=== PATIENT | female | born 1935 | race Caucasian/White ===

== ENCOUNTER → 2016-10-04 | Outpatient (CLI) | payer OTHER ==
[2016-10-04 13:01] LABS: BASOPHILS # (AUTO) 0.09 10*3/UL; EOSINOPHILS # (AUTO) 0.31 10*3/UL; EOSINOPHILS % (AUTO) 3.3 % (0-8); HEMATOCRIT 37.4 % (37.0-47.0); HEMOGLOBIN 11.8 g/dL (12.0-16.0); LYMPHOCYTES # (AUTO) 1.82 10*3/uL; MEAN CORPUSCULAR HEMOGLOBIN 29.4 PG (27-31); MEAN CORPUSCULAR HGB CONC 31.6 g/dL (33-37); MEAN PLATELET VOLUME 8.4 FL (7.4-12.2); MONOCYTES # (AUTO) 0.93 10*3/UL (0.3-0.8); MONOCYTES % (AUTO) 9.9 % (5-15); NEUTROPHILS # (AUTO) 6.22 10*3/UL; NEUTROPHILS % (AUTO) 66.1 % (50-80); RED BLOOD COUNT 4.02 10^6/uL (4.20-5.40)
[2016-10-04 13:19] LABS: CALCIUM 10.7 mg/dL (8.7-10.7); SERUM ALBUMIN 4.4 g/dL (3.5-4.8)
[2016-10-04 13:22] LABS: PLATELET MORPHOLOGY COMMENT NORMAL MORPHOLOGY (NORM); RBC MORPHOLOGY COMMENT NORMAL MORPHOLOGY (NORM); WBC MORPHOLOGY COMMENT NORMAL MORPHOLOGY (NORM)
== END ==
LOC: LAB 12:38
PROVIDERS: ATTEND Physician Assistant
DX: K92.1 Melena (principal); R19.4 Change in bowel habit; R12 Heartburn
CPT/HCPCS: 36415; 80053; 83690; 85025; 85610; 85730; 86140; 99203

== ENCOUNTER → 2016-10-10 | Outpatient (CLI) | payer OTHER | LOC: MMPC 11:11 | PROVIDERS: ATTEND Surgery | DX: K21.9 Gastro-esophageal reflux disease without esophagitis (principal); K62.5 Hemorrhage of anus and rectum; R19.4 Change in bowel habit; R19.7 Diarrhea, unspecified | CPT/HCPCS: 99203; G0463 ==

== ENCOUNTER 2016-10-15 08:13 | Day surgery (SDC) | payer OTHER ==
[~2016-10-15 08:13] MED LIST: LIDOCAINE 2% VISCOUS(20 MG/1 ML) - 15 ML UD CUP PO ONE; LIDOCAINE HCL/PF 2% (20 MG/ML) - 5 ML SYRINGE ONE; LIDOCAINE W/ SODIUM BICARB 0.5 ML SYR ONE; Lactated Ringers 1,000 ML PRIMARY IV ONE; MIDAZOLAM 5 MG/1 ML ONE; fentaNYL Inj 100 MCG/2 ML VIAL ONE
[2016-10-15 08:58] VITALS: RESP 14
[2016-10-15] MEDS ORDERED: Lactated Ringers 1,000 ML PRIMARY IV ONE (09:07)
--- NOTE | 2016-10-15 10:34 | GEN.OPNOTE ---
EGD / Colonoscopy Report Surgery Date: 10/15/16 Preoperative Diagnosis: Chronic GERD. Bright red blood per rectum. Change in bowel habits. Diarrhea. Postoperative Diagnosis: Same. Diverticulosis. Colon polyps 2. Procedure: #1 esophagogastroduodenoscopy with biopsy. #2 complete colonoscopy with multiple random biopsies and hot snare polypectomy 2. Surgeon: Arnoldo Mendes MD Anesthesia Provider: Kennedy Wren CRNA Anesthesia Type: MAC Indications: See preoperative diagnosis. EGD Findings: Esophagus: [Normal] GE Junction : [Mild irregularity] Fundus : [Normal] Body : [Normal] Prepyloric : [Mild erythema] Small Intestine : [Normal] A lubricated flexible upper endoscope was inserted and passed through the esophagus and stomach into the duodenum. The duodenum and duodenal bulb were unremarkable. The pyloric channel was patent. There is mild inflammation in the antrum. Multiple biopsies were taken. Hemostasis was assured. The remainder of the gastric mucosa was unremarkable. Air was aspirated. The scope was withdrawn into the distal esophagus. Biopsies were taken at and above the Z line. Hemostasis was assured. The scope was withdrawn through the remainder of a normal-appearing esophagus and brought through the hypopharynx under suction completing that portion of the procedure. Colonoscopy Findings: Prep : [Very good] Cecum : [Normal] Ascending : [Small polyp. Removed with a hot snare. Random biopsies taken.] Transverse : [Normal. Random biopsies taken.] Sigmoid : [Small polyp. Hot snare polypectomy performed. Diverticulosis. Random biopsies taken. Sigmoid colon was tortuous.] Rectum : [Normal. Random biopsies taken] Digital Rectal Exam : [No significant perianal pathology.] Anoscopy:[No significant hemorrhoidal disease.] A lubricated flexible colonoscope was inserted and passed to the blind end of the cecum. The sigmoid colon was very tortuous and it took a while to advance the scope to the cecum. This appendiceal orifice and ileocecal valve were clearly seen. Air was aspirated as the scope was withdrawn. There is a small polyp in the right colon and a small polyp in the sigmoid colon. Both were removed with a hot snare. Random biopsies were taken from the right colon, transverse colon, sigmoid colon, and rectum. There was diverticulosis most predominant in the sigmoid but diverticuli were seen throughout the colon. Otherwise the entire colonoscopy was normal without other polyps, tumor, neoplastic masses, infectious or inflammatory processes identified. There was only minimal hemorrhoidal tissue and nothing amenable to local treatment. The scope was withdrawn completing the procedure. Patient tolerated the entire procedure well without complication. She was taken to outpatient surgery in stable condition. Follow-up will be with my office on an as-needed basis. We will call the biopsy results when available and plan therapy and follow-up accordingly.
[2016-10-15 11:43] VITALS: TEMP 97.5
== END 2016-10-15 11:25 | disposition home or self-care (01) ==
LOC: SDSC 08:13
PROVIDERS: ATTEND Surgery
DX: K21.9 Gastro-esophageal reflux disease without esophagitis (principal); K62.5 Hemorrhage of anus and rectum; R19.4 Change in bowel habit; R19.7 Diarrhea, unspecified; K57.90 Diverticulosis of intestine, part unspecified, without perforation or abscess without bleeding; K63.5 Polyp of colon
CPT/HCPCS: 43239; 45385; J2250; J2704; J3010; J7120

== ENCOUNTER 2018-04-20 13:00 | Inpatient (IN) ==
[2018-04-20] MEDS ORDERED: Sodium Chloride 0.9% 1,000 ML PRIMARY IV ONE (13:41)
--- NOTE | 2018-04-20 14:26 | EKG ---
[address] [address] Measurements Intervals [place] Rate: 89 P: 192 MN: 158 QRS: 198 QRSD: 87 T: 141 QT: 351 QTc: 397 Interpretive Statements ECTOPIC ATRIAL RHYTHM POSSIBLE RIGHT VENTRICULAR HYPERTROPHY [SOME/ALL OF: PROMINENT R IN V1, LATE TRANSITION, RAD, CHOLO, SSS] No previous ECG available for comparison Electronically Signed On 04-21-18 15:26:14 MST by Roque Reyes MD [email or web address]
[2018-04-20 14:56] LABS: BASOPHILS # (AUTO) 0.04 10*3/UL; BASOPHILS % (AUTO) 0.4 % (0-1); EOSINOPHILS # (AUTO) 0.16 10*3/UL; EOSINOPHILS % (AUTO) 1.7 % (0-8); Hematocrit [HCT] 34.1 % (37.0-47.0); Hemoglobin [HGB] 10.4 g/dL (12.0-16.0); LYMPHOCYTES # (AUTO) 1.15 10*3/uL; MEAN CORPUSCULAR HEMOGLOBIN 28.2 PG (27-31); MEAN CORPUSCULAR HGB CONC 30.5 g/dL (33-37); MEAN CORPUSCULAR VOLUME 92.4 FL (81-99); MEAN PLATELET VOLUME 8.3 FL (7.4-12.2); MONOCYTES # (AUTO) 0.89 10*3/UL (0.3-0.8); MONOCYTES % (AUTO) 9.6 % (5-15); NEUTROPHILS # (AUTO) 6.98 10*3/UL; NEUTROPHILS % (AUTO) 75.6 % (50-80); RED BLOOD COUNT 3.69 10^6/uL (4.20-5.40)
[2018-04-20 14:57] LABS: PLATELET MORPHOLOGY COMMENT NORMAL MORPHOLOGY (NORM); RBC MORPHOLOGY COMMENT NORMAL MORPHOLOGY (NORM); WBC MORPHOLOGY COMMENT NORMAL MORPHOLOGY (NORM)
[2018-04-20 15:08] LABS: BILIRUBIN,URINE SMALL (NEG); CLARITY,URINE CLEAR (CLEAR); COLOR,URINE YELLOW (Y); GLUCOSE, URINE (UA) NEGATIVE (NEG); OCCULT BLOOD,URINE Trace-lysed (NEG); PH,URINE 5.5 (5.0-8.5); PROTEIN,URINE TRACE mg/dl (NEG); UROBILINOGEN,URINE 0.2 EU/dL (0.2)
[2018-04-20 15:13] LABS: BLOOD UREA NITROGEN 25 mg/dL (7-22); BUN/CREATININE RATIO 31.25 (6-20); SERUM ALBUMIN 4.1 g/dL (3.5-4.8)
[2018-04-20 15:15] LABS: SQUAMOUS EPITHELIAL CELL,UR FEW; URINE SAMPLE TYPE CATH SPECIMEN; WBC,URINE RARE
[2018-04-20 15:16] LABS: BACTERIA,URINE MODERATE; RENAL EPITHELIAL CELLS,URINE MODERATE; URINE CASTS FEW
--- NOTE | 2018-04-20 16:07 | PDOC ---
HPI - History of Present Illness History of Present Illness: Is a very nice 82-year-old female brought in by her daughter she's been having a week of mucousy diarrhea 2-3 times a day with generalized weakness dehydration and confusion. Denies chest pain nausea vomiting Past Medical History In the Past 12 Months, Have Used or Abuse Any of the Following Substance: None Medication / Allergies Home Medications: Home Medications Medication Instructions Recorded Confirmed Type metformin 1,000 mg tablet 1,000 mg PO BID #180 tab 10/28/17 04/20/18 Rx Pen Needle, Diabetic [Pen Needle] 0 ea .ROUTE .MEDSUPPLY 12/16/17 04/20/18 History donepezil 10 mg tablet 10 mg PO QDAY #90 tab 12/22/17 04/20/18 Rx enalapril maleate 10 mg tablet 10 mg PO QDAY tab 12/22/17 04/20/18 History fluoxetine 40 mg capsule 40 mg PO QDAY cap 12/22/17 04/20/18 History hydrochlorothiazide 25 mg tablet 25 mg PO QDAY tab 12/22/17 04/20/18 History lancets 32 gauge 1 gauge MISCELLANEOUS QDAY #50 ea 12/24/17 04/20/18 Rx aspirin 81 mg tablet,delayed 81 mg PO QDAY #112 tab 03/08/18 04/20/18 Rx release insulin glargine (U-100) 100 See Rx Instructions .ROUTE 03/12/18 04/20/18 Rx unit/mL (3 mL) subcutaneous pen .COMPLEX #3 milliliter Blood Sugar Diagnostic [Contour 0 unit .ROUTE .MEDSUPPLY 04/20/18 04/20/18 History Test Strip] wheelchair 0 unit .ROUTE .MEDSUPPLY 04/20/18 04/20/18 History Allergies/Adverse Reactions: Allergies Allergy/AdvReac Type Severity Reaction Status Date / Time Sulfa (Sulfonamide Allergy NOT Verified 03/23/18 15:02 Antibiotics) APPLICABLE Review of Systems - Review of Systems All Systems: Reviewed & No Additional Complaints Except as Stated - Respiratory Respiratory: DENIES: Negative System Review, Cough, Sputum, Dyspnea At Rest, Dyspnea with Exertion, Pleuritic Pain, Hemoptysis, Wheezing, Other, See HPI - Cardiovascular Cardiovascular: DENIES: Negative System Review, Chest Pain, Edema, Syncope, Palpitations, Orthopnea, Paroxysmal Nocturnal Dyspnea, Other, See HPI - Gastrointestinal Gastrointestinal / Abdominal: REPORTS: Diarrhea Exam - Vitals Vital Signs: Vital Signs Height 5 ft 2 in Weight 110 lb - General General Appearance: No Acute Distress, Cooperative - Head Head Exam: Normal Inspection, Normocephalic, Atraumatic - Neck Neck Exam: Normal Inspection, Full ROM, No Tenderness, No Lymphadenopathy, No Thyromegaly, JVP is not Raised - Respiratory Respiratory Exam: POSITIVE: Clear to Auscultation - Bilaterally, Breathing Non Labored, Normal To Percussion, Normal to Percussion and Palpation - Cardiovascular Cardiovascular Exam: POSITIVE: RRR, No Murmur, No Clicks, No Gallops, No Rubs, PMI Non-Displaced - GI/Abdominal GI/Abdominal Exam: POSITIVE: Normal Bowel Sounds, Non Tender, Non Distended, Soft, No Masses, No Hepatomegaly, No Splenomegaly, No Organomegaly - Extremities Extremities Exam: POSITIVE: No Clubbing Present, No Edema Present Results - Labs CBC and BMP: 04/20/18 13:41 04/20/18 14:48 Assessment and Plan - Patient Problems (1) Urinary tract infection Current Visit: No Status: Resolved Comment: Treatment with ceftriaxone patient is confused Code(s): N39.0 - Urinary tract infection, site not specified Qualifiers: (2) Diarrhea in adult patient Current Visit: No Status: Resolved Comment: By a fire alarm parasites and stool cultures were sent CT scan abdomen and pelvis pending this could all be from metformin as well I will hold metformin Code(s): R19.7 - Diarrhea, unspecified (3) Weakness Current Visit: Yes Status: Acute Comment: Daughter unable to take care of patient at home hard to move around came close to falling multiple times consult PTOT Code(s): R53.1 - Weakness (4) Dementia Current Visit: No Status: Chronic Comment: Stable Code(s): F03.90 - Unspecified dementia without behavioral disturbance Qualifiers: (5) Depression Current Visit: No Status: Chronic Qualifiers: (6) Type 2 diabetes mellitus Current Visit: No Status: Chronic Qualifiers:
--- NOTE | 2018-04-20 16:53 | PDOC ---
General Adult HPI - General Chief Complaint: Nausea / Vomiting / Diarrhea Stated Complaint: MUCOUSY STOOLS, DISORIENTED, WEAKNESS Date Seen by Provider: 04/20/18 Time Seen by Provider: 13:05 Source: POSITIVE: Patient, Other (Daughter) Exam Limitations: POSITIVE: No limitations Nurse's Notes Reviewed & Considered: Yes - History of Present Illness Initial Comment: The patient is an 82-year-old female who is brought to the emergency department with complaints of loose mucousy stool, generalized weakness and some increased confusion. The patient's daughter reports that for the past several weeks she has noticed increased mucus in the stool. Over the past several days this is become more prominent. The patient has persistent sensation that she needs have a bowel movement however usually only passes small amounts of stool with copious amounts of mucus. They have not noticed any blood in the stool. She states that she does have some pain in her abdomen intermittently and has some slight pain in the epigastric region currently. She has not had any associated nausea or vomiting. They have not noticed any fever. Her daughter reports however over the past week or 2 she has been progressively getting weaker to the point where her daughter is concerned about taking care of her at home. She has not had any recent significant falls. Her daughter thinks that she was treated fairly recently for a urinary tract infection. She does not have any known history of inflammatory bowel disease. Have you received a tetanus shot in the past 10 years?: Yes - Patient Home Medications Home Medications: Home Medications metformin 1,000 mg tablet 1,000 mg PO BID #180 tab 10/28/17 Pen Needle, Diabetic [Pen Needle] 0 ea .ROUTE .MEDSUPPLY 12/16/17 donepezil 10 mg tablet 10 mg PO QDAY #90 tab 12/22/17 enalapril maleate 10 mg tablet 10 mg PO QDAY tab 12/22/17 fluoxetine 40 mg capsule 40 mg PO QDAY cap 12/22/17 hydrochlorothiazide 25 mg tablet 25 mg PO QDAY tab 12/22/17 lancets 32 gauge 1 gauge MISCELLANEOUS QDAY #50 ea 12/24/17 aspirin 81 mg tablet,delayed release 81 mg PO QDAY #112 tab 03/08/18 insulin glargine (U-100) 100 unit/mL (3 mL) subcutaneous pen See Rx Instructions .ROUTE .COMPLEX #3 milliliter 03/12/18 Blood Sugar Diagnostic [Contour Test Strip] 0 unit .ROUTE .MEDSUPPLY 04/20/18 wheelchair 0 unit .ROUTE .MEDSUPPLY 04/20/18 - Patient Allergies Allergies/Adverse Reactions: Allergies Allergy/AdvReac Type Severity Reaction Status Date / Time Sulfa (Sulfonamide Allergy NOT Verified 03/23/18 15:02 Antibiotics) APPLICABLE Past Medical History - heen HEENT History: Denies History Cardiovascular History: Hypertension Respiratory History: Denies History Gastrointestinal History: GERD Genitourinary History: Denies History Endocrine History: Type 2 Diabetes (oral), Type 2 Diabetes (insulin) Musculoskeletal History: Osteoporosis Prosthesis or Implant: No Neurological History: Denies History Blood Disorders: Denies History Psychiatric History: Depression History of Sexually Transmitted Diseases: No Female Reproductive History: Denies History Cancer History: Denies History In Past Year Been Physically Harmed or Verbally Threatened: No (PER PATIENT AND DAUGHTER) History of MDRO: No History of Other Communicable Diseases: No Tobacco Use: Never Smoker Alcohol Use: Rarely In the Past 12 Months, Have Used or Abuse Any Substance: None Previous Surgical History: Yes Type / Date of Surgery: SHASHANK/ D&C Anesthesia Reactions: No Malignant Hyperthermia: No Family History of Malignant Hyperthermia: No Significant Family History: No pertinent family hx Past Medical History Reviewed: Reviewed - No Changes ROS - Limitations ROS Limitations: No Limitations Constitution: REPORTS: Chills, Weakness. DENIES: Fever Cardiovascular: DENIES: Edema Respiratory: DENIES: Shortness Of Breath Neurological: REPORTS: Confusion, Difficulty Walking. DENIES: Headache, Numbn ess, Weakness Gastrointestinal: REPORTS: Abdominal Pain, Diarrhea. DENIES: Nausea, Vomitting, Black Stools, Bloody Stools Endocrine: REPORTS: Fatigue Musculoskeletal: DENIES: Lower Extremity Swelling Genitourinary: REPORTS: Denies Symptoms Eyes: REPORTS: Denies Symptoms ENT: REPORTS: Denies Symptoms Skin: DENIES: Rash General Adult Exam - General Appearance General Appearance: POSITIVE: Alert, Cooperative, No Acute Distress - HEENT HEENT: POSITIVE: Head Inspection Nml, Eyes Inspection Nml, Ears Inspection Nml, Nose Inspection Nml, Pharynx Inspect. Nml, Dry Mucous Membranes - Neck Neck: POSITIVE: Normal Inspection. NEGATIVE: Lymphadenopathy - Respiratory Respiratory: POSITIVE: No Respiratory Distress, Breath Sounds Normal - Cardiovascular Cardiovascular: POSITIVE: Regular Rate & Rhythm, No Murmur - Abdomen Abdomen: Soft: (All Quadrants), No [place] Mass: (All Quadrants), No Distention: (All Quadrants) Additional Abdominal Details: She does have some tenderness to her upper abdomen with deeper palpation, no guarding or rebound tenderness, no palpable mass - Back Back: POSITIVE: Normal Inspection - Skin Skin: POSITIVE: Normal Color, No Rash - Extremities Extremity: Normal ROM: (All Extremities), Normal Inspection: (All Extremities) - Neurological / Psychological Neurological: POSITIVE: Other (No focal neurologic deficits) General Adult Progress - Results Reviewed by me Lab Results Reviewed by Me: Yes Lab Results:: Laboratory Results 04/20/18 04/20/18 04/20/18 13:41 14:48 14:48 WBC 9.25 RBC 3.69 L Hgb 10.4 L Hct 34.1 L MCV 92.4 MCH 28.2 MCHC 30.5 L RDW Std Deviation 49.4 RDW Coeff of Jabier 15.2 H Plt Count 506 H MPV 8.3 Immature Gran % (Auto) 0.3 Neut % (Auto) 75.6 Lymph % (Auto) 12.4 R[place]els % (Auto) 9.6 Eos % (Auto) 1.7 Baso % (Auto) 0.4 Immature Gran # (Auto) 0.03 Neut # (Auto) 6.98 Lymph # (Auto) 1.15 [place] # (Auto) 0.89 H Eos # (Auto) 0.16 Baso # (Auto) 0.04 WBC Morphology Comment Normal morphology Plt Morphology Comment Normal morphology RBC Morph Comment Normal morphology Sodium 137 Potassium 4.2 Chloride 102 Carbon Dioxide 25 Anion Gap 10 BUN 25 H Creatinine 0.8 BUN/Creatinine Ratio 31.25 H Glucose 127 H Calculated Osmolality 289.0 Calcium 9.8 Magnesium 1.9 Total Bilirubin 0.4 AST 19 ALT 11 Alkaline Phosphatase 79 Troponin I < 0.012 C-Reactive Protein 7.1 H Total Protein 7.3 Albumin 4.1 Globulin 3.1 Albumin/Globulin Ratio 1.30 TSH Ur Collection Type Urine Color Urine Clarity Urine pH Ur Specific [place] Urine Protein Urine Glucose (UA) Urine Ketones Urine Occult Blood Urine Nitrate Urine Bilirubin Urine Urobilinogen Ur Leukocyte Esterase Urine RBC Urine WBC Ur Squamous Epith Cells Ur Renal Epithelial Cell Urine Crystals Urine Bacteria Urine Casts Urine Mucus Urine Trichomonas Urine Yeast Ur Culture Indicated? 04/20/18 04/20/18 14:48 15:01 WBC RBC Hgb Hct MCV MCH MCHC RDW Std Deviation RDW Coeff of Jabier Plt Count MPV Immature Gran % (Auto) Neut % (Auto) Lymph % (Auto) [place] % (Auto) Eos % (Auto) Baso % (Auto) Immature Gran # (Auto) Neut # (Auto) Lymph # (Auto) [place] # (Auto) Eos # (Auto) Baso # (Auto) WBC Morphology Comment Plt Morphology Comment RBC Morph Comment Sodium Potassium Chloride Carbon Dioxide Anion Gap BUN Creatinine BUN/Creatinine Ratio Glucose Calculated Osmolality Calcium Magnesium Total Bilirubin AST ALT Alkaline Phosphatase Troponin I C-Reactive Protein Total Protein Albumin Globulin Albumin/Globulin Ratio TSH 1.34 Ur Collection Type Cath specimen Urine Color Yellow Urine Clarity Clear Urine pH 5.5 Ur Specific [place] 1.025 Urine Protein Trace Urine Glucose (UA) Negative Urine Ketones 15 Urine Occult Blood Trace-lysed H Urine Nitrate Negative Urine Bilirubin Small Urine Urobilinogen 0.2 Ur Leukocyte Esterase Negative Urine RBC 1-3 Urine WBC Rare Ur Squamous Epith Cells Few Ur Renal Epithelial Cell Moderate Urine Crystals None Urine Bacteria Moderate H Urine Casts Few Urine Mucus Moderate Urine Trichomonas None Urine Yeast None Ur Culture Indicated? Culture not set CBC and BMP: 04/20/18 13:41 04/20/18 14:48 EKG Interpreted/Reviewed By Me:: Yes EKG Interpretation:: POSITIVE: Normal Sinus Rhythm, Normal Rate, Normal QRS, Normal ST/T - Patient's Progress MDM / ED Course: EKG done shortly after arrival shows normal sinus rhythm with no acute ST segment changes. An IV was established and she received 1 L bolus of normal saline. Her blood work reveals an elevated BUN. Her white count is normal with an elevated CRP at 7. Her troponin is normal and her blood work is all essentially unremarkable otherwise. Urinalysis shows no evidence of infection at this time. CT scan of the abdomen and pelvis and stool studies are still pending. Because of the patient's significant weakness and apparent dehydration decision was made to admit the patient for further evaluation. Dr. Kumar was contacted and has agreed to admit the patient for further care. These findings and recommendations were discussed with the patient and her daughter as well and they are in agreement with this plan. - Consult Counseled: POSITIVE: Patient, Family, RE: Lab Results, RE: DX, RE: Need for F/U Patient Care Time - Estimated PCT Patient Care Time (In Minutes): 35 Vital Signs - Recent Vital Signs Vital Signs: Vital Signs (Last 8 hours) Temp Pulse Pulse Resp BP Pulse Ox 04/20/18 14:28 89 04/20/18 13:00 97.9 F 96 16 120/70 94 - VS Reviewed Vital Signs Reviewed: Yes Discharge Clinical Impression: Weakness, Abdominal pain, Dehydration, Diarrhea Discharge Disposition: Admit to Inpatient Condition: Fair Date Decision to Admit to Inpatient: 04/20/18 Time Decision to Admit to Inpatient: 15:40
[2018-04-20] MEDS ORDERED: Insulin Lispro Flexpen 300 UNIT/3 ML INSULN.PEN SUBCUT ONE (17:00)
[2018-04-20] MEDS ORDERED: LIDOCAINE W/ SODIUM BICARB 0.5 ML SYR SUBD PRN (17:00)
--- NOTE | 2018-04-20 17:06 | DI ---
CT Abdomen/Pelvis W Contrast 04/20/2018 3:55 PM History: [facility] [place]DIARRHEA, WEAKNESS Comparison: CTA abdominal aorta 01/20/2018. Technique: Imaging was performed with a multi-detector CT scanner. Data acquisition was obtained from the dome of the diaphragm through the pubic symphysis without oral contrast and after the uneventful administration of 75 mL of Isovue intravenous contrast material. Multiplanar reformations were perfo rmed. Findings: There is thickening of the wall of the sigmoid colon and rectum. There is moderate pericolo madi and perirectal fat stranding with a small amount of fluid deep in the pelvis. There is no definit e free intraperitoneal air. There is extensive colonic diverticulosis. No abdominopelvic lymphadenopa thy is present. The lung bases notable for bibasilar dependent atelectasis. There is a right lower lobe calcified gra nuloma and a calcified right hilar lymph node. A small hiatal hernia is noted. A 1.2 cm cystic lesion is noted in the distal body of the pancreas and a 1.4 cm cystic lesion is note d in the tail. Coarse calcifications in the head and tail of the pancreas are noted, a finding associ ated with chronic pancreatitis. There are surgical clips in the gallbladder fossa. There is mild thic kening of the bilateral adrenal glands. There is normal CT appearance of the liver, spleen, and kidne ys. Vascular structures are intact. There is no inguinal or abdominal wall hernia. The uterus and adn exa are unremarkable, though better evaluated with pelvic ultrasound. There is a sub-acute left posterolateral eighth rib fracture. Impression: 1. There is thickening of the wall of the sigmoid colon and rectum with associated fat stranding and fluid. There is no definite extraluminal gas. Differential considerations include infectious, inflamm atory, and ischemic etiologies. There is also colonic diverticulosis, although the length of involvem ent is greater than expected for acute diverticulitis. Age-appropriate cancer screening is recommende d upon completion of therapy in order to exclude an underlying neoplastic process. 2. Multiple cystic pancreatic lesions. A multiphasic contrast-enhanced MRI of the pancreas with MRCP is recommended for further characterization.
[2018-04-20] MEDS ORDERED: cefTRIAXone Inj 2 GM in Sodium Chloride 0.9% 100 ML IV SCH (18:00)
[2018-04-20] MEDS: DONEPEZIL 5 MG TABLET PO SCH (20:00)
[2018-04-20] MEDS: Ertapenem Inj 1 GM in Sodium Chloride 0.9% 100 ML IV SCH (20:00)
[2018-04-20] MEDS: HEPARIN 5000 UNIT/1 ML SUBCUT SCH (20:00)
[2018-04-20] MEDS: Insulin Lispro Flexpen 300 UNIT/3 ML INSULN.PEN SUBCUT SCH (20:14)
[2018-04-21] MEDS: HEPARIN 5000 UNIT/1 ML SUBCUT SCH ×3 (04:25→23:13)
[2018-04-21 05:07] LABS: BASOPHILS # (AUTO) 0.04 10*3/UL; BASOPHILS % (AUTO) 0.5 % (0-1); EOSINOPHILS # (AUTO) 0.17 10*3/UL; EOSINOPHILS % (AUTO) 2.3 % (0-8); Hematocrit [HCT] 30.2 % (37.0-47.0); Hemoglobin [HGB] 9.4 g/dL (12.0-16.0); LYMPHOCYTES # (AUTO) 1.21 10*3/uL; MEAN CORPUSCULAR HEMOGLOBIN 29.1 PG (27-31); MEAN CORPUSCULAR HGB CONC 31.1 g/dL (33-37); MEAN CORPUSCULAR VOLUME 93.5 FL (81-99); MEAN PLATELET VOLUME 8.4 FL (7.4-12.2); MONOCYTES # (AUTO) 0.54 10*3/UL (0.3-0.8); MONOCYTES % (AUTO) 7.4 % (5-15); NEUTROPHILS # (AUTO) 5.35 10*3/UL; RED BLOOD COUNT 3.23 10^6/uL (4.20-5.40)
[2018-04-21 05:26] LABS: PLATELET MORPHOLOGY COMMENT NORMAL MORPHOLOGY (NORM); RBC MORPHOLOGY COMMENT NORMAL MORPHOLOGY (NORM); WBC MORPHOLOGY COMMENT NORMAL MORPHOLOGY (NORM)
[2018-04-21 05:30] LABS: BLOOD UREA NITROGEN 17 mg/dL (7-22); BUN/CREATININE RATIO 24.28 (6-20); SERUM ALBUMIN 3.7 g/dL (3.5-4.8)
--- NOTE | 2018-04-21 07:32 | PDOC(PROG) ---
Interval History: Uneventful night did not get her MRI yet because of power outage she did have a bowel movement solid small stool unable to be sent out because mixed with urine diarrhea resolved Objective : Data - Labs CBC and BMP: 04/21/18 04:45 04/21/18 04:45 Objective : Exam - General General Appearance: No Acute Distress, Cooperative - Respiratory Respiratory Exam: Clear to Auscultation - Bilaterally, Breathing Non Labored, Normal To Percussion, Normal to Percussion and Palpation - Cardiovascular Cardiovascular Exam: RRR, No Murmur, No Clicks, No Gallops, No Rubs, PMI Non- Displaced - GI/Abdominal GI/Abdominal Exam: Normal Bowel Sounds, Non Tender, Non Distended, Soft, No Masses, No Hepatomegaly, No Splenomegaly, No Organomegaly Assessment and Plan - Patient Problems (1) Urinary tract infection Current Visit: No Status: Resolved Comment: Continue antibiotics ertapenem for intraoral abdominal possible colitis Code(s): N39.0 - Urinary tract infection, site not specified Qualifiers: (2) Diarrhea in adult patient Current Visit: No Status: Resolved Comment: Stable labs are still pending possible colitis on CT consult general surgery solid stool this morning very small unable to be set Code(s): R19.7 - Diarrhea, unspecified (3) Weakness Current Visit: Yes Status: Acute Comment: Consult PT and OT daughter is unable to take care her at home any more Code(s): R53.1 - Weakness (4) Dementia Current Visit: No Status: Chronic Comment: Stable Code(s): F03.90 - Unspecified dementia without behavioral disturbance Qualifiers: (5) Depression Current Visit: No Status: Chronic Comment: Stable Qualifiers: (6) Type 2 diabetes mellitus Current Visit: No Status: Chronic Comment: Sliding scale Qualifiers:
[2018-04-21] MEDS: Insulin Lispro Flexpen 300 UNIT/3 ML INSULN.PEN SUBCUT SCH ×4 (08:53→20:32)
[2018-04-21] MEDS: HYDROCHLOROTHIAZIDE 25 MG TABLET PO SCH (09:35)
[2018-04-21] MEDS: FLUoxetine 20 MG CAPSULE PO SCH (09:35)
[2018-04-21] MEDS: ASPIRIN EC 81 MG TABLET PO SCH (09:35)
[2018-04-21] MEDS: ENALAPRIL 10 MG TABLET PO SCH (09:35)
--- NOTE | 2018-04-21 13:48 | DI ---
MRI Abdomen WO Contrast 04/21/2018 7:00 AM History: [facility] [place]pancreatic cyst Technique: Multiplanar multi-sequential imaging of the abdomen with MRCP was performed. Comparison: CT abdomen/pelvis 04/20/2018. Findings: Normal liver size and contour without mass, infiltrating process, or abnormal signal alteration. Normal gallbladder without wall thickening or a filling defect. Normal common bile duct and intrahepa tic bile ducts. Normal angel hepatis. There is mild diffuse pancreatic atrophy. The main pancreatic duct is not significantly dilated. Mult iple cystic lesions are noted along the course of the duct arising predominantly in the body and tail . These lesions demonstrate communication with the main pancreatic duct. Normal splenic size and contour. No masses. Normal adrenal glands. Normal right kidney size and contour. No masses, cysts, or hydronephrosis. Normal perinephric space. Normal left kidney size and contour. No masses, cysts, or hydronephrosis. Normal perinephric space. Normal abdominal aorta. Normal retroperitoneum without abnormally enlarged lymphadenopathy or inflammation. Normal mesentery without pathologic adenopathy or evidence of inflammation. No ascites. Normal abdominal wall structures with no demonstrated hernias. Impression: 1. There is mild diffuse pancreatic atrophy with multiple cystic lesions in the body and tail that co mmunicate with the nondilated main pancreatic duct. Given the presence of coarse calcifications on e recent CT abdomen/pelvis, these are favored to represent the sequela of chronic pancreatitis. A bra nch duct intraductal papillary mucinous neoplasm (IPMN) could have a similar appearance, however.
--- NOTE | 2018-04-21 15:45 | CONSULT ---
Consult Note - Consult Consult Date: 04/21/18 Reason for Consult: PreOp Consulation : General Surgery Requesting Physician: Dr. Egan Primary Care Provider: Liz Garrido APRN - History of Present Illness History of Present Illness: This is an 82-year-old female who is brought in by her daughter because generalized weakness. She's been having some loose mucousy stools. 2-3 a day. Patient has history of chronic UTIs. Patient had a colonoscopy approximately 2 years ago for diverticular bleed. Patient is status post left scopic cholecystectomy. Patient has had loose stools ever since that time she states. She denies any abdominal pain. No fevers or chills. Patient's CT scan shows thickening of the sigmoid colon and the rectum. This is nonspecific finding. There is no pneumatosis. No free air. No evidence of diverticular abscess. No endocrine the bladder. Patient had a 1.5 cm cystic lesion seen in the pancreas she had she has to cyst. MRI shows again simple cyst. There is microcalcifications indicating chronic pancreatitis. Patient again has no abdominal pain Past Medical History Tobacco Use: Never Smoker In the Past 12 Months, Have Used or Abuse Any of the Following Substance: None Medication / Allergies Home Medications: Home Medications Medication Instructions Recorded Confirmed Type metformin 1,000 mg tablet 1,000 mg PO BID #180 tab 10/28/17 04/20/18 Rx Pen Needle, Diabetic [Pen Needle] 0 ea .ROUTE .MEDSUPPLY 12/16/17 04/20/18 History donepezil 10 mg tablet 10 mg PO QDAY #90 tab 12/22/17 04/20/18 Rx enalapril maleate 10 mg tablet 10 mg PO QDAY tab 12/22/17 04/20/18 History fluoxetine 40 mg capsule 40 mg PO QDAY cap 12/22/17 04/20/18 History hydrochlorothiazide 25 mg tablet 25 mg PO QDAY tab 12/22/17 04/20/18 History lancets 32 gauge 1 gauge MISCELLANEOUS QDAY #50 ea 12/24/17 04/20/18 Rx aspirin 81 mg tablet,delayed 81 mg PO QDAY #112 tab 03/08/18 04/20/18 Rx release insulin glargine (U-100) 100 See Rx Instructions .ROUTE 03/12/18 04/20/18 Rx unit/mL (3 mL) subcutaneous pen .COMPLEX #3 milliliter Blood Sugar Diagnostic [Contour 0 unit .ROUTE .MEDSUPPLY 04/20/18 04/20/18 History Test Strip] wheelchair 0 unit .ROUTE .MEDSUPPLY 04/20/18 04/20/18 History Allergies/Adverse Reactions: Allergies Allergy/AdvReac Type Severity Reaction Status Date / Time Sulfa (Sulfonamide Allergy NOT Verified 03/23/18 15:02 Antibiotics) APPLICABLE Results - Labs CBC and BMP: 04/21/18 04:45 04/21/18 04:45 Exam - Vitals Vital Signs: Vital Signs Temperature 98 F Temperature Source Temporal Artery Scan Pulse Rate [Pulse Oximeter] 88 Pulse Rate 80 Respiratory Rate 16 Blood Pressure [Right Arm] 97/56 Blood Pressure [Left Arm] 120/70 Blood Pressure 131/74 Pulse Ox 96 Oxygen Flow Rate 2 Oxygen Delivery Method Nasal Cannula Height 5 ft 2 in Weight 123 lb 4.8 oz - GI/Abdominal GI/Abdominal Exam: POSITIVE: Normal Bowel Sounds, Non Tender, Non Distended, Soft, No Masses, No Hepatomegaly, No Splenomegaly, No Organomegaly
--- NOTE | 2018-04-21 16:19 | PTI REPORT ---
Thank you for the referral of Rhoda Ang. She was seen on 04/21/18 for an inpatient evaluation secondary to weakness. SUBJECTIVE: The patient is an 82-year-old female who was brought to the hospital secondary to weakness, confusion, and a UTI. The patient is confused this morning. She has difficulty recalling where she is currently living and does give conflicting information on her current status and her home. The patient is living with her daughter currently. She states that most days she is not needing assistance with her basic ADLs. She primarily uses a four wheeled walker in order to ambulate. She states that she has not had any falls over the last few months. The patient's is over at the [facility] at this time rehabbing to return back to their assisted living apartment here in [place]. The patient has not felt comfortable living at the assisted living facility since her is not there and that is the reason why she is living with her daughter at this time. She does plan on returning back to the assisted living facility once both she and her can live there again. PAST MEDICAL HISTORY: Past medical history can be found in the patient's medical record. OBJECTIVE FINDINGS: General observations: The patient was alert upon PT arrival. The patient was on two liters of oxygen. The patient did not have her walker at the hospital so we did get a front wheeled walker to use for our evaluation. Strength: Manual muscle tests for bilateral lower extremity demonstrates strength of 3/5. Transfers: The patient was able to perform a sit to stand transfer with contact guard assist x1 and max verbal cueing for proper hand placement. The patient demonstrated fair initial standing balance. She demonstrates a forward flexed posture of her trunk and required hand hold assist x2 on the walker in order to maintain her static standing balance. The patient required max cueing for a stand to seated transfer. The patient has poor safety awareness and does not get backed up all the way before she starts sitting down and ends up sitting on the edge of the bed. She then needs max cueing to position herself back into bed. Bed mobility: The patient was able to perform a seated edge of bed to supine transfer with stand by assist x1 for safety. Once in bed she requires verbal cueing in order to perform bed mobility to get squared in the bed. Ambulation: The patient was able to ambulate 70 feet with contact guard assist x1 for safety and max verbal cueing and at times tactile cueing. The patient does have tendencies to veer toward the left when ambulating with the walker and also has a hard time staying within the base of the walker. She requires assistance in order to maneuver the walker away from veering to the left and also max cueing to remind the patient to stay in the walker and to continue to move forward as at times she has gait hesitancy. The patient also had a lot of difficulties with performing a turn and following simple commands in order to turn to her right to head back down the boone. She required maximum tactile cueing of helping turn the walker in order to get the patient going in the right direction. ASSESSMENT: The patient has fair rehab potential secondary to her cognition, age, and medical history. Problem List: Decreased endurance/activity tolerance Generalized weakness Short-Term Goals: To be met by discharge from inpatient: Patient will be able to transfer from bed to stand safely and independently. Patient will be able to ambulate at least 150 feet safely and independently without verbal cueing. Patient will be able to tolerate 30 minutes of physical therapy activity for general strengthening and balance in order to ensure she is safe to return home. Long-Term Goals: To be met following discharge from inpatient: Patient may benefit from outpatient physical therapy if deemed necessary upon time of discharge. TREATMENT PLAN: Patient will be seen B.I.D during the week and one time per day over the weekend as an inpatient to address the above goals and objectives. INITIAL TREATMENT: Treatment today consisted of the initial evaluation. Following treatment the patient was left in bed with bed alarm set and call light within reach. SCDs were placed back on the patient. MTDD
[2018-04-21] MEDS: Ertapenem Inj 1 GM in Sodium Chloride 0.9% 100 ML IV SCH (20:32)
[2018-04-21] MEDS: DONEPEZIL 5 MG TABLET PO SCH (20:32)
[2018-04-22 05:06] LABS: BASOPHILS # (AUTO) 0.03 10*3/UL; BASOPHILS % (AUTO) 0.4 % (0-1); EOSINOPHILS # (AUTO) 0.15 10*3/UL; EOSINOPHILS % (AUTO) 1.8 % (0-8); Hematocrit [HCT] 28.2 % (37.0-47.0); Hemoglobin [HGB] 8.6 g/dL (12.0-16.0); LYMPHOCYTES # (AUTO) 1.06 10*3/uL; MEAN CORPUSCULAR HEMOGLOBIN 28.8 PG (27-31); MEAN CORPUSCULAR HGB CONC 30.5 g/dL (33-37); MEAN CORPUSCULAR VOLUME 94.3 FL (81-99); MEAN PLATELET VOLUME 8.6 FL (7.4-12.2); MONOCYTES % (AUTO) 7.1 % (5-15); NEUTROPHILS # (AUTO) 6.57 10*3/UL; NEUTROPHILS % (AUTO) 77.9 % (50-80); RED BLOOD COUNT 2.99 10^6/uL (4.20-5.40)
[2018-04-22 05:24] LABS: PLATELET MORPHOLOGY COMMENT NORMAL MORPHOLOGY (NORM); RBC MORPHOLOGY COMMENT NORMAL MORPHOLOGY (NORM); WBC MORPHOLOGY COMMENT NORMAL MORPHOLOGY (NORM)
[2018-04-22 05:39] LABS: BLOOD UREA NITROGEN 19 mg/dL (7-22); BUN/CREATININE RATIO 27.14 (6-20); SERUM ALBUMIN 3.1 g/dL (3.5-4.8)
[2018-04-22] MEDS: Insulin Lispro Flexpen 300 UNIT/3 ML INSULN.PEN SUBCUT SCH ×4 (07:14→21:28)
[2018-04-22] MEDS: HEPARIN 5000 UNIT/1 ML SUBCUT SCH ×2 (07:18→16:30)
[2018-04-22] MEDS: HYDROCHLOROTHIAZIDE 25 MG TABLET PO SCH (07:18)
[2018-04-22] MEDS: ENALAPRIL 10 MG TABLET PO SCH (08:50)
[2018-04-22] MEDS: ASPIRIN EC 81 MG TABLET PO SCH (08:50)
[2018-04-22] MEDS: FLUoxetine 20 MG CAPSULE PO SCH (08:50)
--- NOTE | 2018-04-22 11:02 | OT.PROG ---
Progress Note Progress Note: Occupational Therapy: S: pt stated that she was feeling better and agreed to therapy services. O: tx consisted of bed transfers from Supine to EOB independently, STS x10 with use of walker for stability and CGA for safety, AROM UE exercises in all planes of motion x 10 each, transfer from EOB to supine independently. A: pt needs verbal cueing to complete exercises and for positioning of self for safety. pt tolerated session well. P: continue POC
--- NOTE | 2018-04-22 12:53 | OTI REPORT ---
Thank you for the referral of Rhoda Ang. She was seen on 04/21/18 for an occupational therapy inpatient evaluation secondary to weakness. SUBJECTIVE: The patient is an 82-year-old female who is being seen today secondary to dehydration, diarrhea, and confusion, a UTI, weakness, dementia, depression, and Diabetes Type II. The patient was very confused during the evaluation today. She originally told the therapist that she lived at the [facility] with her but recently has been staying with her children secondary to her being admitted to the [facility]. Prior to him being admitted, the patient did live at an assisted living facility. This report was given from staff, not from the patient herself. The patient states that prior to admission she was dressing herself and doing most things by herself. She was not able to give a good description of the home where she lives currently. She was not able to describe the assistance she is getting. PAST MEDICAL HISTORY: Past medical history can be found in the patient's medical record. OBJECTIVE FINDINGS: General observations: The patient was alert and oriented to her name. She did not know the date or where she was at. [facility] and she thought that her items were in the "other room". Bed mobility: The patient did complete bed mobility from supine to sit with min assist. The patient transferred back into bed with mod assist. Range of motion: While sitting edge of bed the patient demonstrated 90 degrees of shoulder flexion on the right and 110 degrees of shoulder flexion on the left. She was within normal limits for elbow and wrist range of motion. Strength: Strength measurements were hard to assess as the patient was not able to understand the instructions to hold her arms against resistance. She kept pushing them in the direction that the therapist was applying some pressure. She also was not able to follow opposition commands with the thumb to each finger. She wanted to pinch the therapist's finger instead of her own. Transfers: The patient required mod assist to transfer from sit to stand. Ambulation: The patient did use a wheeled walker to go to the bathroom. The patient requires min to mod assist to keep her balance. She shuffles her feet a lot and has difficulty keeping upright; she tends to lean backwards. Activities of daily living: The patient completed toilet hygiene independently after set up and was able to stand at sink with mod assist to keep her balance. We did assess her dressing abilities and the patient was dependent with donning and doffing socks and required max assist to don pants as she was only able to bend to approximately mid calf and she was not able to poultry picking machine tender legs in order to dress lower extremities. The patient also had difficulty with balance when pulling pants to waist level. ASSESSMENT: At one point it was stated that the patient may return to assisted living if her improves; however, based on her abilities today, it would be best to have the patient in a 24-hour care facility or with 24-hour care from family secondary to her balance, confusion, and decreased ability to perform ADLs. If the patient does make improvements, we will reassess. Problem List: Confusion Decreased strength Decreased ability to complete ADLs Decreased balance Short-Term Goals: To be met by discharge from inpatient: Patient will improve upper extremity strength by participating in at least 15 minutes of strength activities daily. Patient will improve her balance by being able to complete a toilet transfer with stand by assist. Patient will be able to stand at sink to complete hygiene activities for at least 5 minutes to improve activity tolerance and safety with standing. Patient will be able to dress upper and lower extremities with contact guard assist. Patient will be alert and oriented x3. Long-Term Goals: To be met following discharge from inpatient: Patient will have 24-hour care to assist with ADLs and functional balance to decrease falls. TREATMENT PLAN: Patient will be seen B.I.D during the week and one time per day over the weekend as an inpatient to address the above goals and objectives. INITIAL TREATMENT: Treatment today consisted of the initial evaluation followed by the patient coming from supine to sit with mod assist. The patient sat edge of bed and attempted dressing tasks. The patient then completed a sit to stand with mod assist and walked to bathroom where she completed toilet hygiene. The patient stood at the sink and then transferred back into bed. RAKEL
--- NOTE | 2018-04-22 17:02 | PDOC(PROG) ---
Date of Service: 04/22/18 Time of Service: 17:00 Interval History: Subjective Patient is denying symptoms. The daughter said that she brought her to the hospital because she was passing lots of mucus. She's not sure about diarrhea but she noticed lots of mucus. There was some abdominal discomfort. There was no bleeding, this was going on for 3 weeks and because of that they brought her to the hospital. A CT of the abdomen raised the possibility of colitis. She was put on IV antibiotics and IV fluid. She was very weak when she came in. She seems to be improved. Patient herself is denying complaint. The nursing staff did not notice mucus or diarrhea. Apparently she seemed to be stronger than before. There is a history of dementia though. Objective : Data - Labs CBC and BMP: 04/22/18 04:15 04/22/18 04:15 Objective : Exam - General General Appearance: No Acute Distress, Cooperative - Head Head Exam: Normal Inspection - Eye Eye Exam: Normal Appearance - ENT ENT Exam: Normal Exam - Neck Neck Exam: Normal Inspection - Respiratory Respiratory Exam: Clear to Auscultation - Bilaterally - Cardiovascular Cardiovascular Exam: RRR - GI/Abdominal GI/Abdominal Exam: Normal Bowel Sounds, Non Tender, Non Distended, Soft, No Organomegaly - Rectal Rectal Exam: Deferred - External Exam: Deferred - Extremities Extremities Exam: Normal Inspection - Back Back Exam: Normal Inspection - Neurological Neurological Exam: Alert, CN II-XII Intact, No Facial Droop, Speech Intact / Clear, Moves All Extremities Equally Additional Neurological Exam Details: She now she is in the hospital, she is oriented to self. Not sure about the day or the month. - Psychiatric Psychiatric Exam: Normal Affect Assessment and Plan - Patient Problems (1) Diarrhea in adult patient Current Visit: No Status: Resolved Comment: This was treated as colitis on IV antibiotics. I think we'll continue with antibiotics for 5 days. We'll stop IV fluid. There is a plan for her to go to the [facility] but I'm not sure when though. Code(s): R19.7 - Diarrhea, unspecified (2) Type 2 diabetes mellitus Current Visit: No Status: Chronic Comment: She is on sliding scale continue. Blood sugar seems to be acceptable. Metformin was held because of the contrast that she received. Qualifiers: (3) Depression Current Visit: No Status: Chronic Comment: She is on Prozac continue Qualifiers: (4) Dementia Current Visit: No Status: Chronic Comment: She is on Aricept continue Code(s): F03.90 - Unspecified dementia without behavioral disturbance Qualifiers: (5) Urinary tract infection Current Visit: No Status: Resolved Comment: A UA was slightly abnormal and she was covered with antibiotics. I don't see a culture was sent. Code(s): N39.0 - Urinary tract infection, site not specified Qualifiers: (6) Weakness Current Visit: Yes Status: Acute Comment: Continue PT and OT Code(s): R53.1 - Weakness (7) Anemia Current Visit: Yes Status: Acute Comment: Etiology is unclear. I will send for B12 folate and the ferritin and iron level. She need follow-up with Dr. Mendes once he is back to consider colonoscopy. She gave a history of previous GI bleed in the past. There is no bleeding this time though. Code(s): D64.9 - Anemia, unspecified (8) Pancreatic cyst Current Visit: Yes Status: Acute Comment: This need follow-up later on as an outpatient. Code(s): K86.2 - Cyst of pancreas
--- NOTE | 2018-04-22 17:10 | PT.PROG ---
Progress Note Progress Note: S. Patient stated that she would like to go for a walk this afternoon. O. Patient ambulated 150 feet around the nurses station and performed seated exercises in the form of; long arc quads, marches, pillow squeezes, clam shells, marches all x 10 bilaterally. Patient was left with OT for further therapy. A. Patient tolerated therapy fair, she was very confused and required frequent verbal cues to stay on task and complete all exercises. Patient would continue to benefit from skilled therapy to increase strength, mobility and strength. P. Continue POC.
--- NOTE | 2018-04-22 17:33 | OT.PROG ---
Progress Note Progress Note: Occupational Therapy: S: pt stated that she was feeling good and agreed to therapy services. O: tx consisted of AROM exercises in all planes of motion x10 each, bed mobility from EOB to supine. pt completed bridge exercises x15 to move self up into bed. A:pt tolerated session well. pt can complete most exercises when she is given verbal cues and is not distracted. p: continue POC
[2018-04-22] MEDS: Ertapenem Inj 1 GM in Sodium Chloride 0.9% 100 ML IV SCH (21:19)
[2018-04-22] MEDS: DONEPEZIL 5 MG TABLET PO SCH (21:19)
[2018-04-23] MEDS: HEPARIN 5000 UNIT/1 ML SUBCUT SCH ×2 (00:31→07:04)
[2018-04-23 06:48] LABS: BASOPHILS # (AUTO) 0.04 10*3/UL; BASOPHILS % (AUTO) 0.7 % (0-1); EOSINOPHILS # (AUTO) 0.19 10*3/UL; EOSINOPHILS % (AUTO) 3.1 % (0-8); Hematocrit [HCT] 29.4 % (37.0-47.0); Hemoglobin [HGB] 9.1 g/dL (12.0-16.0); MEAN CORPUSCULAR HEMOGLOBIN 28.9 PG (27-31); MEAN CORPUSCULAR VOLUME 93.3 FL (81-99); MEAN PLATELET VOLUME 8.2 FL (7.4-12.2); MONOCYTES # (AUTO) 0.41 10*3/UL (0.3-0.8); MONOCYTES % (AUTO) 6.7 % (5-15); NEUTROPHILS # (AUTO) 4.23 10*3/UL; NEUTROPHILS % (AUTO) 69.5 % (50-80); RED BLOOD COUNT 3.15 10^6/uL (4.20-5.40)
[2018-04-23 06:51] LABS: PLATELET MORPHOLOGY COMMENT NORMAL MORPHOLOGY (NORM); RBC MORPHOLOGY COMMENT NORMAL MORPHOLOGY (NORM); WBC MORPHOLOGY COMMENT NORMAL MORPHOLOGY (NORM)
[2018-04-23] MEDS: Insulin Lispro Flexpen 300 UNIT/3 ML INSULN.PEN SUBCUT SCH ×2 (07:04→12:54)
[2018-04-23] MEDS: HYDROCHLOROTHIAZIDE 25 MG TABLET PO SCH (07:04)
[2018-04-23 08:43] VITALS: RESP 20
[2018-04-23] MEDS: FLUoxetine 20 MG CAPSULE PO SCH (09:20)
[2018-04-23] MEDS: ASPIRIN EC 81 MG TABLET PO SCH (09:20)
[2018-04-23] MEDS: ENALAPRIL 10 MG TABLET PO SCH (09:20)
[2018-04-23 11:32] VITALS: BP 106/52; TEMP 97.9; O2SAT 90
--- NOTE | 2018-04-23 11:33 | DCSUMMARY ---
Hospitalization Summary Admit Date: 04/20/2018 Discharge Date: 04/23/18 Hospital Course: Discharge diagnoses 1. Colitis of the distal sigmoid and rectum 2. Diabetes 3. Anemia 4. Pancreatic cysts and calcifications like secondary to chronic pancreatitis 5. Hypertension 6. Depression 7. Dementia 8. Extensive Colonic diverticulosis 9. Subacute left posterolateral eighth rib fracture 10. The right lower lobe calcified granuloma and calcified right hilar lymph node. Hospital course This is an 82 years old female with medical history significant for history of diabetes, hypertension, depression and dementia was brought to the hospital by her daughter because of mucousy stool which was going on for about [address] of the abdomen showed findings suggestive of colitis so she was admitted to hospital and was on put on ertapenem. Stool test were negative for pathogen. She did have evidence of multiple pancreatic cysts on the CT so she had an MRI which showed mild diffuse pancreatico atrophy with multiple cystic lesions in the body and tail that's communicates with the nondilated main pancreatic duct giving the findings on the recent CT of the abdomen and pelvis of pancreatic calcification these are favored to represent sequela of chronic pancreatitis branch duct intraductal papillary mucin yes neoplasm could have a similar appearance however. The Suggestion was to follow-up as an outpatient. She did receive in addition to antibiotic, IV fluid. I saw the patient on April 22 she was making progress and her bowels seem to be improved, she denied abdominal pain exam was not remarkable apart from a dementia. She did have some anemia and the advised by surgery was to follow-up with the Dr. Mendes later on as an outpatient as she was seen by him before. On day of discharge her she denied complaints exam unremarkable so we thought that she could be discharged to the senior care and follow-up with Dr. Mendes and her primary as an outpatient. I did give her additional days of antibiotics with Augmentin. Laboratory Results 04/23/18 04/23/18 04/23/18 06:35 06:35 06:35 WBC 6.09 RBC 3.15 L Hgb 9.1 L Hct 29.4 L MCV 93.3 MCH 28.9 MCHC 31.0 L RDW Std Deviation 48.8 RDW Coeff of Jabier 14.9 H Plt Count 456 H MPV 8.2 Immature Gran % (Auto) 0.3 Neut % (Auto) 69.5 Lymph % (Auto) 19.7 Bleckley % (Auto) 6.7 Eos % (Auto) 3.1 Baso % (Auto) 0.7 Immature Gran # (Auto) 0.02 Neut # (Auto) 4.23 Lymph # (Auto) 1.20 Bleckley # (Auto) 0.41 Eos # (Auto) 0.19 Baso # (Auto) 0.04 WBC Morphology Comment Normal morphology Plt Morphology Comment Normal morphology RBC Morph Comment Normal morphology Iron TIBC % Saturation Ferritin 83.90 Vitamin B12 276 Serum Folate 4.04 04/23/18 06:35 WBC RBC Hgb Hct MCV MCH MCHC RDW Std Deviation RDW Coeff of Jabier Plt Count MPV Immature Gran % (Auto) Neut % (Auto) Lymph % (Auto) Bleckley % (Auto) Eos % (Auto) Baso % (Auto) Immature Gran # (Auto) Neut # (Auto) Lymph # (Auto) Bleckley # (Auto) Eos # (Auto) Baso # (Auto) WBC Morphology Comment Plt Morphology Comment RBC Morph Comment Iron 50 TIBC 223 L % Saturation 0 L Ferritin Vitamin B12 Serum Folate Discharge session Diet regular activity as tolerated Medication Current Medication(s) Medication Instructions Recorded Confirmed Type metformin 1,000 mg tablet 1,000 mg PO BID #180 tab 10/28/17 04/20/18 Rx Pen Needle, Diabetic [Pen Needle] 0 ea .ROUTE .MEDSUPPLY 12/16/17 04/20/18 History donepezil 10 mg tablet 10 mg PO QDAY #90 tab 12/22/17 04/20/18 Rx enalapril maleate 10 mg tablet 10 mg PO QDAY tab 12/22/17 04/20/18 History fluoxetine 40 mg capsule 40 mg PO QDAY cap 12/22/17 04/20/18 History hydrochlorothiazide 25 mg tablet 25 mg PO QDAY tab 12/22/17 04/20/18 History lancets 32 gauge 1 gauge MISCELLANEOUS QDAY #50 ea 12/24/17 04/20/18 Rx aspirin 81 mg tablet,delayed 81 mg PO QDAY #112 tab 03/08/18 04/20/18 Rx release insulin glargine (U-100) 100 See Rx Instructions .ROUTE 03/12/18 04/20/18 Rx unit/mL (3 mL) subcutaneous pen .COMPLEX #3 milliliter Blood Sugar Diagnostic [Contour 0 unit .ROUTE .MEDSUPPLY 04/20/18 04/20/18 History Test Strip] wheelchair 0 unit .ROUTE .MEDSUPPLY 04/20/18 04/20/18 History Amoxicillin/Potassium Clav 1 ea PO BID #6 tab 04/23/18 Rx [Augmentin 875-125 Tablet] Follow-up with Dr. Mendes and PCP Condition at discharge was stable for discharge Exam - Vitals Vital Signs: Vital Signs Temperature 97.9 F Temperature Source Temporal Artery Scan Pulse Rate [Apical] 80 Pulse Rate [Pulse Oximeter] 86 Pulse Rate 80 Respiratory Rate 20 Blood Pressure [Right Arm] 106/52 Blood Pressure [Left Arm] 137/67 Blood Pressure 131/74 Pulse Ox 90 Oxygen Flow Rate .5 Oxygen Delivery Method Room Air Height 5 ft 2 in Weight 116 lb 3.2 oz - General General Appearance: No Acute Distress, Cooperative - Head Head Exam: Normal Inspection - Eye Eye Exam: POSITIVE: Normal Appearance - ENT ENT Exam: POSITIVE: Normal Exam - Neck Neck Exam: Normal Inspection - Respiratory Respiratory Exam: POSITIVE: Clear to Auscultation - Bilaterally - Cardiovascular Cardiovascular Exam: POSITIVE: RRR - GI/Abdominal GI/Abdominal Exam: POSITIVE: Normal Bowel Sounds, Non Tender, Non Distended, Soft, No Organomegaly - Rectal Rectal Exam: POSITIVE: Deferred - External Exam: POSITIVE: Deferred Exam: POSITIVE: Deferred - Extremities Extremities Exam: POSITIVE: Normal Inspection - Back Back Exam: POSITIVE: Normal Inspection - Neurological Neurological Exam: POSITIVE: Alert, CN II-XII Intact, No Facial Droop, Speech Intact / Clear, Moves All Extremities Equally Patient Problems - Patient Problem List (1) Diarrhea in adult patient Status: Resolved Comment: Would not classify her problem as diarrhea but as loose stools after breakfast. Generally not watery but "mushy". Stressed importance of taking her metformin with food. May use imodium 1 pill a day when more than 1 stool/day. Will add daily fiber to regimen. (metamucil 2 tsp in 8 ounces of water) Code(s): R19.7 - Diarrhea, unspecified Category: Medical (2) Type 2 diabetes mellitus Status: Chronic Comment: Since she has been staying with her daughter has been eating regularly and blood sugars are in good range 113-178. Qualifiers: Category: Medical (3) Depression Status: Chronic Comment: She has been on fluoxetine 40 mg for "a long time". Denies depression. Qualifiers: Category: Medical (4) Dementia Status: Chronic Comment: She has had formal cognitive testing with records reviewed: Neuropsychological Testing done 07/06/2016 by Alba Ivy PSY.D. 1. Probably major neurocognitive disorder due to multiple etiologies with out Behavior Disturbance. 2. 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 Possible Alzheimer's Dementia, mild Mild impairment per [facility] 08/13/2017. She was previously taking Aricept 10 mg daily but reported leg weakness more after initiation of donepezil so I stopped it at last visit 01/11. Daughter would like her to resume if tolerated. Code(s): F03.90 - Unspecified dementia without behavioral disturbance Qualifiers: Category: Medical (5) Urinary tract infection Status: Resolved Comment: Frequency and urgency post treatment with pyridium is completely resolved. Code(s): N39.0 - Urinary tract infection, site not specified Qualifiers: Category: Medical (6) Weakness Status: Acute Code(s): R53.1 - Weakness Category: Medical (7) Anemia Status: Acute Code(s): D64.9 - Anemia, unspecified Category: Medical (8) Pancreatic cyst Status: Acute Code(s): K86.2 - Cyst of pancreas Category: Medical
--- NOTE | 2018-04-23 13:48 | PT.PROG ---
Progress Note Progress Note: S. Patient stated that she is tired however agreed to do some exercises O. Patient ambulated 20 feet around her room then performed seated exercises in the form of; long arc quads, marches, heel toe raises, pillow squeezes, clam shells, resisted knee flexion all x 10 bilaterally. Patient was left with alarm and call light. A. Patient tolerated therapy fair, this morning, she continues to require frequent verbal cues to ambulate safely, she would continue to benefit from skilled therapy at the care center. P. Continue POC until Discharge.
--- NOTE | 2018-04-23 13:52 | OT.PROG ---
Progress Note Progress Note: Occupational Therapy: S: pt stated that she was feeling okay and needed to use the bathroom. O: tx consisted of bed mobility from supine to EOB with MOD A, functional transfer from standing to toilet with CGA for safety and multiple verbal cues for positioning and safety. pt needed cues to doff brief. pt completed toileting tasks and hygiene independently but needed MAX A for donning new brief. pt completed functional transfer from standing to recliner where pt needed MOD verbal cues and tactile cues to position self for sitting. pt then completed seated dressing tasks. pt needed MOD A for donning bra. pt is independent in UE and LE dressing with set up. A: due to pts cognitive status pts performance in functional tasks varies. pt is independent in most ADL task but struggles with endurance and activity tolerance. P: continue POC
[2018-04-23 16:21] LABS: PARASITIC EXAM FIN 1611
--- NOTE | 2018-04-23 16:32 | PT AM DAY ---
Diagnosis : Weakness AM - Physical Therapy S: The patient states she is doing a little bit better this morning. She appears more responsive and more engaged. The patient states she is willing to participate in therapy. O: The patient ambulated x150 feet x2 with front wheeled walker. The patient did require tactile cueing in order to stay within her walker base and also did require verbal cueing at times in order to maneuver the walker correctly. The patient then returned to her room where she performed seated long arc quads x10 and marching x10 bilaterally with minimal verbal cueing. With verbal cues, the patient was able to transfer from sit to supine. Once supine in bed the patient performed bridges and we worked on bed mobility in order to get her to straighten up in the bed and to move up within the bed. The patient then performed straight leg raises x10 and hip abduction/adduction x10 bilaterally A: The patient did participate better with physical therapy this morning. She was more responsive and engaged during our therapy treatment. She did require less verbal cueing for attention to task and safety awareness than she did yesterday; however, she still does require consistent cueing. It would most likely be more appropriate for the patient to go to a facility where she does have care 27/10 due to her need for verbal cueing for safety awareness secondary to her cognition. P: Continue seeing patient BID during the week and one time per day over the weekend for transfers, ambulation, and range of motion/strengthening exercises. RAKEL
[2018-04-24 09:27] LABS: Rotavirus Antigen, Feces Negative (Negative)
[2018-04-26 15:13] LABS: SPECIMEN SOURCE stool
== END 2018-04-23 14:10 | DRG 392 ==
LOC: ER 13:00 → MED/SURG 15:58
PROVIDERS: ADMIT Internal Medicine; ATTEND Internal Medicine

== ENCOUNTER 2018-07-03 17:26 | Observation (INO) ==
[2018-07-03] MEDS: IPRATROPIUM/ALBUTEROL SULFATE 3 ML NEB NEB ONE ×2 (17:52→22:23)
[2018-07-03] MEDS ORDERED: Sodium Chloride 0.9% 1,000 ML PRIMARY IV ONE (17:52)
[2018-07-03 18:10] LABS: BASOPHILS # (AUTO) 0.07 10*3/UL; BASOPHILS % (AUTO) 0.4 % (0-1); EOSINOPHILS # (AUTO) 0.08 10*3/UL; EOSINOPHILS % (AUTO) 0.5 % (0-8); Hematocrit [HCT] 32.5 % (37.0-47.0); Hemoglobin [HGB] 10.1 g/dL (12.0-16.0); LYMPHOCYTES # (AUTO) 1.14 10*3/uL; MEAN CORPUSCULAR HEMOGLOBIN 27.1 PG (27-31); MEAN CORPUSCULAR HGB CONC 31.1 g/dL (33-37); MEAN CORPUSCULAR VOLUME 87.1 FL (81-99); MONOCYTES % (AUTO) 8.2 % (5-15); NEUTROPHILS # (AUTO) 13.11 10*3/UL; NEUTROPHILS % (AUTO) 83.3 % (50-80); RED BLOOD COUNT 3.73 10^6/uL (4.20-5.40)
[2018-07-03 18:14] LABS: VENOUS PH 7.53 (7.32-7.42)
--- NOTE | 2018-07-03 18:17 | EKG ---
[address] [place] [address] Measurements Intervals Morton Rate: 100 P: 40 VA: 125 QRS: -1 QRSD: 85 T: 51 QT: 350 QTc: 407 Interpretive Statements SINUS TACHY[address] ST DEVIATION AND MODERATE T-WAVE ABNORMALITY, CONSIDER ANTERIOR ISCHEMIA Compared to ECG 04/20/2018 14:28:16 T-wave abnormality now present Possible ischemia now present Ectopic atrial rhythm no longer present Atrial abnormality no longer present Electronically Signed On 07-04-18 12:15:07 MDT by Jonathan Lazo [id number]
[2018-07-03 18:23] LABS: PLATELET MORPHOLOGY COMMENT NORMAL MORPHOLOGY (NORM); RBC MORPHOLOGY COMMENT NORMAL MORPHOLOGY (NORM); WBC MORPHOLOGY COMMENT NORMAL MORPHOLOGY (NORM)
--- NOTE | 2018-07-03 18:25 | PDOC ---
Dyspnea HPI - General Chief Complaint: Dyspnea Stated Complaint: DIFFICULTY BREATHING, COUGH Date Seen by Provider: 07/03/18 Time Seen by Provider: 17:45 Source: POSITIVE: Patient, Other (daughter) Exam Limitations: POSITIVE: No limitations Treatment Prior to Arrival: REPORTS: None Nurse's Notes Reviewed & Considered: Yes EMS Report Reviewed & Considered: Verbal - History of Present Illness Initial Comments: The patient is an 82-year-old female who is brought to the emergency department from the correction with complaints of increased difficulty breathing. She apparently has been having issues with increased difficulty swallowing and poor appetite for the past several weeks. She underwent barium swallow study last week which showed some delayed transit and she was advised to use thickened liquids. Her family reports that while they were eating with her this evening they could hear her breathing audibly. She has had increased cough for the past couple of days and family reports some clear drainage from her nose. They have not noticed any fever at this point. Her appetite is been poor for the past 2 weeks and she has had primarily only mucus stool. She apparently had some stool studies sent out although the results are still pending. She was hospitalized in April of this year for colitis. She denies any current abdominal pain. Her daughter reports frequent urinary symptoms and she frequently states she needs to urinate. A urinalysis was done recently that apparently did not show any sign of infection. She has had urinary tract infections previously. When EMS arrived at the correction the patient's oxygen saturations were 84-86% on room air and she was placed on 2 L per nasal cannula. She does not normally wear oxygen. - Patient Home Medications Home Medications: Home Medications metformin 1,000 mg tablet 1,000 mg PO BID #180 tab 10/28/17 donepezil 10 mg tablet 10 mg PO QDAY #90 tab 12/22/17 enalapril maleate 10 mg tablet 10 mg PO QDAY tab 12/22/17 fluoxetine 40 mg capsule 40 mg PO QDAY cap 12/22/17 hydrochlorothiazide 25 mg tablet 25 mg PO QDAY tab 12/22/17 aspirin 81 mg tablet,delayed release 81 mg PO QDAY #112 tab 03/08/18 insulin glargine (U-100) 100 unit/mL (3 mL) subcutaneous pen See Rx Instructions .ROUTE .COMPLEX #3 ml 03/12/18 famotidine 20 mg tablet 20 mg PO BID 05/20/18 ondansetron HCl 8 mg tablet 8 mg PO Q4H PRN tab 05/20/18 wheat dextrin 3 gram/3.5 gram oral powder packet 1 packet PO QDAY 06/28/18 Buprenorphine [Butrans] 1 ea TRANSDERMAL WEEKLY 07/03/18 - Patient Allergies Allergies/Adverse Reactions: Allergies Allergy/AdvReac Type Severity Reaction Status Date / Time Sulfa (Sulfonamide Allergy NOT Verified 07/03/18 17:37 Antibiotics) APPLICABLE Past Medical History - heen HEENT History: Denies History Cardiovascular History: Hypertension Respiratory History: Denies History Gastrointestinal History: GERD, Colitis, Other (please comment) Additional Gastrointestinal History: cyst of pancreas Genitourinary History: Recurrent UTI Endocrine History: Type 2 Diabetes (oral), Type 2 Diabetes (insulin) Musculoskeletal History: Osteoporosis Prosthesis or Implant: No Neurological History: Dementia Blood Disorders: Anemia Psychiatric History: Depression History of Sexually Transmitted Diseases: No Cancer History: Denies History In Past Year Been Physically Harmed or Verbally Threatened: No History of MDRO: No History of Other Communicable Diseases: No Tobacco Use: Never Smoker Alcohol Use: Rarely In the Past 12 Months, Have Used or Abuse Any Substance: None Previous Surgical History: Yes Type / Date of Surgery: SHASHANK/ D&C Anesthesia Reactions: No Malignant Hyperthermia: No Significant Family History: No pertinent family hx Past Medical History Reviewed: Reviewed - No Changes ROS - Limitations ROS Limitations: No Limitations Constitution: DENIES: Chills, Fever Cardiovascular: DENIES: Chest Pain Respiratory: REPORTS: Cough Non Productive, Shortness Of Breath, Wheezing (Audible breath sounds per family) Neurological: REPORTS: Other (Her daughter reports increased generalized weakness the past couple of weeks). DENIES: Headache Gastrointestinal: REPORTS: Other (She has had decreased oral intake and poor appetite, difficulty swallowing as above. Daughter reports primarily mucousy stools the last couple of weeks). DENIES: Vomitting Musculoskeletal: REPORTS: Denies MS Symptoms Genitourinary: REPORTS: Other (Urinary frequency and urgency) Eyes: REPORTS: Denies Symptoms ENT: REPORTS: Nasal Drainage (Clear per family). DENIES: Sore Throat Dyspnea Physical Exam - General Appearance General Appearance: REPORTS: Alert, Cooperative, No Acute Distress - HEENT HEENT: POSITIVE: Head Inspection Nml, Eyes Inspection Nml, Pharynx Inspect. Nml, Dry Mucous Membranes - Neck Neck: REPORTS: Normal Inspection - Respiratory Respiratory: REPORTS: No Respiratory Distress, Other (She does have audible rhonchi primarily in the right lung, she is slightly tachypnea, respirations are otherwise unlabored, she does have a frequent junky sounding cough) - Cardiovascular Cardiovascular: REPORTS: Regular Rate and Rhythm, Heart Sounds Normal Peripheral Pulses: Dorsalis-pedis (R): 2+, Dorsalis-pedis (L): 2+ - Abdomen Abdomen: Soft: (All Quadrants), Denies Tenderness: (All Quadrants), No Guarding: (All Quadrants), No Rebound: (All Quadrants), No Distention: (All Quadrants) - Skin Skin: REPORTS: Intact, No Rash - Extremities Extremity: Normal ROM: (All Extremities), Normal Inspection: (All Extremities) - Neurological / Psychological Neurological: POSITIVE: Other (No focal neurologic deficit) Dyspnea Progress - Results Reviewed by me Xrays/CTs/US Reviewed by me: Yes Discussed with Radiologist: Yes Radiology Findings: One view of the chest shows some costophrenic blunting on th e left with no other acute findings per radiologist. CT of the chest shows no evidence of central PE, parabronchial thickening with air trapping with no obvious consolidation per radiologist. CT of the abdomen and pelvis shows sigmoid diverticulitis with an associated abscess measuring 4.9 x 2.5 cm per radiologist. Lab Results Reviewed by Me: Yes CBC and BMP: 07/03/18 18:01 07/03/18 18:01 Lab Results:: Laboratory Results 07/03/18 07/03/18 07/03/18 17:52 17:52 18:01 WBC RBC Hgb Hct MCV MCH MCHC RDW Std Deviation RDW Coeff of Jabier Plt Count MPV Immature Gran % (Auto) Neut % (Auto) Lymph % (Auto) [place] % (Auto) Eos % (Auto) Baso % (Auto) Immature Gran # (Auto) Neut # (Auto) Lymph # (Auto) [place] # (Auto) Eos # (Auto) Baso # (Auto) WBC Morphology Comment Plt Morphology Comment RBC Morph Comment D-Dimer VBG pH 7.53 H VBG pCO2 33 L VBG HCO3 28 H VBG Base Excess 5 H Sodium Potassium Chloride Carbon Dioxide Anion Gap BUN Creatinine BUN/Creatinine Ratio Glucose Calculated Osmolality Calcium Magnesium 1.7 Total Bilirubin AST ALT Alkaline Phosphatase Troponin I C-Reactive Protein 7.7 H NT-Pro-B Natriuret Pep 1390 H Total Protein Albumin Globulin Albumin/Globulin Ratio Ur Collection Type Clean catch urine Urine Color Yellow Urine Clarity Clear Urine pH 7.5 Ur Specific Pioneer 1.015 Urine Protein 100 A Urine Glucose (UA) Negative Urine Ketones Negative Urine Occult Blood Trace-intact H Urine Nitrate Negative Urine Bilirubin Negative Urine Urobilinogen 2.0 Ur Leukocyte Esterase Moderate Urine RBC 3-5 Urine WBC 30-40 Ur Squamous Epith Cells Rare Ur Renal Epithelial Cell None Urine Crystals None Urine Bacteria Few Urine Casts None Urine Mucus Moderate Urine Trichomonas None Urine Yeast None Ur Culture Indicated? Culture set 07/03/18 07/03/18 07/03/18 18:01 18:01 18:01 WBC 15.76 H RBC 3.73 L Hgb 10.1 L Hct 32.5 L MCV 87.1 MCH 27.1 MCHC 31.1 L RDW Std Deviation 46.9 RDW Coeff of Jabier 15.3 H Plt Count 587 H MPV 8.0 Immature Gran % (Auto) 0.4 Neut % (Auto) 83.3 H Lymph % (Auto) 7.2 L [place] % (Auto) 8.2 Eos % (Auto) 0.5 Baso % (Auto) 0.4 Immature Gran # (Auto) 0.06 Neut # (Auto) 13.11 Lymph # (Auto) 1.14 [place] # (Auto) 1.30 H Eos # (Auto) 0.08 Baso # (Auto) 0.07 WBC Morphology Comment Normal morphology Plt Morphology Comment Normal morphology RBC Morph Comment Normal morphology D-Dimer 1.33 H VBG pH VBG pCO2 VBG HCO3 VBG Base Excess Sodium Potassium Chloride Carbon Dioxide Anion Gap BUN Creatinine BUN/Creatinine Ratio Glucose Calculated Osmolality Calcium Magnesium Total Bilirubin AST ALT Alkaline Phosphatase Troponin I < 0.012 C-Reactive Protein NT-Pro-B Natriuret Pep Total Protein Albumin Globulin Albumin/Globulin Ratio Ur Collection Type Urine Color Urine Clarity Urine pH Ur Specific Pioneer Urine Protein Urine Glucose (UA) Urine Ketones Urine Occult Blood Urine Nitrate Urine Bilirubin Urine Urobilinogen Ur Leukocyte Esterase Urine RBC Urine WBC Ur Squamous Epith Cells Ur Renal Epithelial Cell Urine Crystals Urine Bacteria Urine Casts Urine Mucus Urine Trichomonas Urine Yeast Ur Culture Indicated? 07/03/18 18:01 WBC RBC Hgb Hct MCV MCH MCHC RDW Std Deviation RDW Coeff of Jabier Plt Count MPV Immature Gran % (Auto) Neut % (Auto) Lymph % (Auto) [place] % (Auto) Eos % (Auto) Baso % (Auto) Immature Gran # (Auto) Neut # (Auto) Lymph # (Auto) [place] # (Auto) Eos # (Auto) Baso # (Auto) WBC Morphology Comment Plt Morphology Comment RBC Morph Comment D-Dimer VBG pH VBG pCO2 VBG HCO3 VBG Base Excess Sodium 135 Potassium 4.3 Chloride 98 Carbon Dioxide 25 Anion Gap 12 BUN 26 H Creatinine 0.7 BUN/Creatinine Ratio 37.14 H Glucose 146 H Calculated Osmolality 287.0 Calcium 9.4 Magnesium Total Bilirubin 0.2 L AST 29 ALT 6 L Alkaline Phosphatase 102 Troponin I C-Reactive Protein NT-Pro-B Natriuret Pep Total Protein 7.4 Albumin 3.8 Globulin 3.7 Albumin/Globulin Ratio 1.00 L Ur Collection Type Urine Color Urine Clarity Urine pH Ur Specific Pioneer Urine Protein Urine Glucose (UA) Urine Ketones Urine Occult Blood Urine Nitrate Urine Bilirubin Urine Urobilinogen Ur Leukocyte Esterase Urine RBC Urine WBC Ur Squamous Epith Cells Ur Renal Epithelial Cell Urine Crystals Urine Bacteria Urine Casts Urine Mucus Urine Trichomonas Urine Yeast Ur Culture Indicated? EKG Interpreted/Reviewed By Me:: Yes EKG Interpretation:: POSITIVE: Normal Sinus Rhythm (Rate is 100), Normal QRS, Other (She does have T-wave inversions in lead V2 and V3, there is significant artifact in many leads) - Patient's Progress MDM / ED Course: The patient was hypoxic at the correction with oxygen saturations of 84-86% on room air. She was placed on 2 L per nasal cannula and her oxygen saturations have improved into the mid-90s. An IV was established, blood cultures, lactate and venous blood gas were obtained with initial IV start. Her blood gas reveals a pH 7.5 with a PCO2 of 33. She did receive a DuoNeb as well as a 1 L bolus of normal saline. Her white count was significantly elevated at 15.9 with a CRP of 7.7. Her d-dimer was elevated at 1.33. She had a normal troponin. BNP was elevated at 1390. The remainder of her blood work was unremarkable. Urinalysis did show 30-40 WBCs and culture was set. Respiratory panel was positive for human medopneomovirus. After the DuoNeb treatment the patient continued to have rhonchi isolated primarily to the right lung. There was significant clinical suspicion for aspiration and she had evidence of a urinary tract infection. She was given Rocephin 2 g IV and Flagyl 500 mg IV. Subsequent CTA of the chest was negative for any PE, she did have some air trapping with parabronchial thickening with no obvious consolidation per radiologist. Because of her symptoms of vomiting, mucousy stool, decreased appetite and elevated white count, a CT of the abdomen and pelvis was also performed. This did end up showing sigmoid diverticulitis with a 4.9 x 2.5 cm abscess. These findings were discussed with the patient and her daughter. I also subsequently discussed the patient with Dr. Anaya. Because of the abscess he recommended that the patient be evaluated for possible percutaneous drainage. I subsequently sent the patient's CT images to [facility] and they were reviewed by Dr. Mcelroy from interventional radiology. He stated that the abscess was in a difficult position however he thought percutaneous drainage would be possible. He stated that this could be done by him as an outpatient tomorrow. He recommended that the patient be admitted here and then brought to [facility] for the procedure at which time she could subsequently return to the hospital here and Dre. I discussed this option with Dr. Anaya and he thought that would be reasonable. He recommended hospitalist admission for medical management and stated he would see the patient in consultation as well. I subsequently spoke with Dr. Kumar and he has agreed to admit the patient with the above plan. The patient and her daughter are in agreement with this plan as well. - Consult Counseled: POSITIVE: Patient, Family, RE: Lab Results, RE: Radiology Results, R E: DX Patient Care Time - Estimated PCT Patient Care Time (In Minutes): 60 Vital Signs - Recent Vital Signs Vital Signs: Vital Signs (Last 8 hours) Temp Pulse Resp BP Pulse Ox 07/03/18 17:31 96.8 F 100 20 123/70 96 - VS Reviewed Vital Signs Reviewed: Yes Discharge Clinical Impression: Acute bronchiolitis due to human metapneumovirus, Aspiration into airway, Dehydration, Sigmoid diverticulitis, Colonic diverticular abscess, Urinary tract infection Discharge Disposition: Admit to Inpatient Condition: Fair Date Decision to Admit to Inpatient: 07/03/18 Time Decision to Admit to Inpatient: 21:15
[2018-07-03 18:29] LABS: BLOOD UREA NITROGEN 26 mg/dL (7-22); BUN/CREATININE RATIO 37.14 (6-20); SERUM ALBUMIN 3.8 g/dL (3.5-4.8)
[2018-07-03 18:30] LABS: BILIRUBIN,URINE NEGATIVE (NEG); CLARITY,URINE CLEAR (CLEAR); COLOR,URINE YELLOW (Y); GLUCOSE, URINE (UA) NEGATIVE (NEG); OCCULT BLOOD,URINE Trace-intact (NEG); PH,URINE 7.5 (5.0-8.5); PROTEIN,URINE 100 mg/dl (NEG)
[2018-07-03 18:34] LABS: BACTERIA,URINE FEW; SQUAMOUS EPITHELIAL CELL,UR RARE; URINE SAMPLE TYPE CLEAN CATCH URINE; WBC,URINE 30-40
--- NOTE | 2018-07-03 18:40 | DI ---
EXAM: XR Chest, 1 View CLINICAL HISTORY: ITS.REASON Dyspnea Physician Notes: Tech Comments: TECHNIQUE: Frontal view of the chest. COMPARISON: No relevant prior studies available. FINDINGS: Lungs: Accentuation of the pulmonary markings. Mild periportal thickening. Pleural space: Blunting of the left costophrenic angle that could be from pleural effusion or pleural thickening. No pneumothorax. Heart: Unremarkable. No cardiomegaly. Mediastinum: Unremarkable. Bones/joints: Old left rib fractures. IMPRESSION: Blunting of the left costophrenic angle that could be from pleural effusion or pleural thickening.
[2018-07-03] MEDS ORDERED: metroNIDAZOLE 500mg (Premix) 500 MG/100 ML BAG IV ONE (18:57)
[2018-07-03] MEDS ORDERED: cefTRIAXone Inj 2 GM in Sodium Chloride 0.9% 100 ML IV ONE (18:57)
--- NOTE | 2018-07-03 19:55 | DI ---
EXAM: CT Chest With Intravenous Contrast CLINICAL HISTORY: ITS.REASON hypoxia, elevated d-dimer Physician Notes: Tech Comments: TECHNIQUE: Axial computed tomography images of the chest with intravenous contrast. MIP reconstructed images were created and reviewed. COMPARISON: Earlier chest x-ray FINDINGS: Lungs: No central pulmonary embolus. Mild air trapping and peribronchial thickening. No confluent consolidation. Pleural space: Unremarkable. No pneumothorax. No effusion. Heart: No cardiomegaly. No pericardial effusion. Bones/joints: Bilateral old rib fractures. Soft tissues: Unremarkable. Vasculature: Unremarkable. No thoracic aortic aneurysm. Lymph nodes: No enlarged lymph nodes. IMPRESSION: 1. No central pulmonary embolus. 2. Mild air trapping and peribronchial thickening. No confluent consolidation.
--- NOTE | 2018-07-03 20:03 | DI ---
EXAM: CT Abdomen and Pelvis With Intravenous Contrast CLINICAL HISTORY: ITS.REASON vomiting, elevated WBC Physician Notes: Tech Comments: TECHNIQUE: Axial computed tomography images of the abdomen and pelvis with intravenous contrast. COMPARISON: 04/20/18 FINDINGS: ABDOMEN: Liver: Unremarkable. Gallbladder and bile ducts: Cholecystectomy. Pancreas: Couple of low attenuation foci in the pancreas, largest measures about 15 mm in the body as before Spleen: Unremarkable. Adrenals: Unremarkable. Kidneys and ureters: Unremarkable. No hydronephrosis. Stomach and bowel: Sigmoid diverticulitis with adjacent abscess measuring approximately 4.9 x 2.6 cm. PELVIS: Appendix: appendix not identified. Bladder: Unremarkable. Reproductive: Unremarkable. Subperitoneal space: Presacral edema. ABDOMEN and PELVIS: Intraperitoneal space: Unremarkable. Bones/joints: Old rib fractures. Soft tissues: Unremarkable. Vasculature: Unremarkable. No abdominal aortic aneurysm. Lymph nodes: No enlarged lymph nodes. IMPRESSION: Sigmoid diverticulitis with adjacent abscess measuring approximately 4. 9 x 2.6 cm. Follow to resolution to exclude underlying/coexisting lesion.
[2018-07-03] MEDS ORDERED: Insulin Lispro Flexpen 300 UNIT/3 ML INSULN.PEN SUBCUT ONE (21:14)
[2018-07-03] MEDS ORDERED: DOCUSATE 100 MG CAPSULE PO PRN (21:38)
[2018-07-03] MEDS ORDERED: LIDOCAINE W/ SODIUM BICARB 0.5 ML SYR SUBD PRN (21:38)
[2018-07-03] MEDS ORDERED: ONDANSETRON 4 MG/2 ML VIAL IVP PRN (21:38)
[2018-07-03] MEDS ORDERED: IPRATROPIUM/ALBUTEROL SULFATE 3 ML NEB NEB ONE (21:38)
[2018-07-03] MEDS ORDERED: BUPRENORPHINE Transdermal SCH (21:38)
[2018-07-03] MEDS ORDERED: CALCIUM CARBONATE 500 MG (TUMS) CHEWABLE TABLET PO PRN (21:38)
[2018-07-03] MEDS ORDERED: ACETAMINOPHEN 325 MG TABLET PO PRN (21:38)
[2018-07-04 04:34] LABS: BASOPHILS # (AUTO) 0.06 10*3/UL; BASOPHILS % (AUTO) 0.6 % (0-1); EOSINOPHILS # (AUTO) 0.03 10*3/UL; EOSINOPHILS % (AUTO) 0.3 % (0-8); Hematocrit [HCT] 25.1 % (37.0-47.0); LYMPHOCYTES # (AUTO) 1.12 10*3/uL; MEAN CORPUSCULAR HEMOGLOBIN 27.9 PG (27-31); MEAN CORPUSCULAR HGB CONC 31.9 g/dL (33-37); MEAN CORPUSCULAR VOLUME 87.5 FL (81-99); MEAN PLATELET VOLUME 8.1 FL (7.4-12.2); MONOCYTES # (AUTO) 0.58 10*3/UL (0.3-0.8); MONOCYTES % (AUTO) 5.6 % (5-15); NEUTROPHILS # (AUTO) 8.44 10*3/UL; NEUTROPHILS % (AUTO) 82.2 % (50-80); RED BLOOD COUNT 2.87 10^6/uL (4.20-5.40)
[2018-07-04 04:52] LABS: BLOOD UREA NITROGEN 19 mg/dL (7-22); BUN/CREATININE RATIO 27.14 (6-20); SERUM ALBUMIN 2.6 g/dL (3.5-4.8)
[2018-07-04 05:02] LABS: PLATELET MORPHOLOGY COMMENT NORMAL MORPHOLOGY (NORM); RBC MORPHOLOGY COMMENT SEE COMMENTS (NORM); WBC MORPHOLOGY COMMENT NORMAL MORPHOLOGY (NORM)
[2018-07-04] MEDS: Ertapenem Inj 1 GM in Sodium Chloride 0.9% 100 ML IV SCH (08:27)
[2018-07-04] MEDS ORDERED: Ertapenem Inj 1 GM in Sodium Chloride 0.9% 100 ML IV SCH (09:00)
--- NOTE | 2018-07-04 09:22 | CONSULT ---
Consult Note - Consult Consult Date: 07/04/18 Reason for Consult: PreOp Consulation : General Surgery Requesting Physician: Dr. Egan and Dr. Patten Primary Care Provider: Liz Garrido APRN - History of Present Illness History of Present Illness: This is an 82-year-old female who is brought from the long-term because of having increased shortness of breath and difficulty breathing. During the course of the workup she was found to have a diverticular abscess. Patient has had a diverticular bleed in the past and status post left hemicolectomy. Patient has had bouts of diarrhea since that time. Patient also has persistently been anemic. She's now is having currently's swallowing dif ficulties. Cannot really obtain much history from the patient herself. Review of Systems - Review of Systems ROS Unobtainable: Due to Condition Past Medical History Medical History: Diabetes, hypertension, dementia Surgical History: Left hemicolectomy Tobacco Use: Never Smoker In the Past 12 Months, Have Used or Abuse Any of the Following Substance: None Medication / Allergies Home Medications: Home Medications Medication Instructions Recorded Confirmed Type metformin 1,000 mg tablet 1,000 mg PO BID #180 tab 10/28/17 07/03/18 Rx donepezil 10 mg tablet 10 mg PO QDAY #90 tab 12/22/17 07/03/18 Rx enalapril maleate 10 mg tablet 10 mg PO QDAY tab 12/22/17 07/03/18 History fluoxetine 40 mg capsule 40 mg PO QDAY cap 12/22/17 07/03/18 History hydrochlorothiazide 25 mg tablet 25 mg PO QDAY tab 12/22/17 07/03/18 History aspirin 81 mg tablet,delayed 81 mg PO QDAY #112 tab 03/08/18 07/03/18 Rx release insulin glargine (U-100) 100 See Rx Instructions .ROUTE 03/12/18 07/03/18 Rx unit/mL (3 mL) subcutaneous pen .COMPLEX #3 ml famotidine 20 mg tablet 20 mg PO BID 05/20/18 07/03/18 History ondansetron HCl 8 mg tablet 8 mg PO Q4H PRN tab 05/20/18 07/03/18 History wheat dextrin 3 gram/3.5 gram oral 1 packet PO QDAY 06/28/18 07/03/18 History powder packet Buprenorphine [Butrans] 1 ea TRANSDERMAL WEEKLY 07/03/18 07/03/18 History Allergies/Adverse Reactions: Allergies Allergy/AdvReac Type Severity Reaction Status Date / Time Sulfa (Sulfonamide Allergy NOT Verified 07/04/18 06:44 Antibiotics) APPLICABLE Results - Labs CBC and BMP: 07/04/18 04:17 07/04/18 04:17 Exam - Vitals Vital Signs: Vital Signs Temperature 97.9 F Temperature Source Temporal Artery Scan Pulse Rate [Pulse Oximeter] 88 Pulse Rate 84 Respiratory Rate 22 Blood Pressure [Right Arm] 112/58 Blood Pressure [Left Arm] 101/45 Blood Pressure 111/62 Pulse Ox 91 Oxygen Flow Rate 2 Oxygen Delivery Method Nasal Cannula Height 5 ft 2 in Weight 109 lb - General General Appearance: No Acute Distress, Cooperative - Head Head Exam: Normocephalic - Eye Eye Exam: POSITIVE: PERRL, EOMI - Respiratory Respiratory Exam: POSITIVE: Clear to Auscultation - Bilaterally, Breathing Non Labored - Cardiovascular Cardiovascular Exam: POSITIVE: RRR, No Murmur - GI/Abdominal GI/Abdominal Exam: POSITIVE: Normal Bowel Sounds, Non Tender, Non Distended, Soft, No Hepatomegaly, No Splenomegaly - Rectal Rectal Exam: POSITIVE: Deferred - External Exam: POSITIVE: Deferred - Neurological Neurological Exam: POSITIVE: Alert, CN II-XII Intact - Integumentary Integumentary Exam: POSITIVE: Normal Color Assessment and Plan - Patient Problems (1) Colonic diverticular abscess Current Visit: Yes Status: Acute Code(s): K57.20 - Diverticulitis of large intestine with perforation and abscess without bleeding - Assessment / Plan Additional Assessment/Plan Details: Patient will need to be a transferred [facility] [place] of the abscess. I have talked to Dr. Mcelroy and made arrangements to have a p ercutaneous drainage. The patient will then come back to [facility] for additional care
[2018-07-04] MEDS ORDERED: LIDOCAINE HCL 2 % 10 ML JELLY URO-JECT TOPICAL PRN (09:51)
--- NOTE | 2018-07-04 10:08 | PDOC ---
HPI - History of Present Illness History of Present Illness: This very nice 82-year-old female who resides at the [facility]. She was initially brought to the ER because of shortness of breath. But during her workup with CT scan of the chest revealed no pneumonia or aspiration pneumonia and abdominal CT revealed a diverticular abscess 5 x 2 cm. Patient does have a history of diverticular bleed and is status post left hemicolectomy. Patient is a poor historian and she is been anemic and the over the last few months or unable to find a bleeding source. She also complains of some swallowing difficulties as well. She is doing great today she has no pain whatsoever she looks very weak she is unable to get out of bed to use the restroom and she does have an elevated BNP. Past Medical History Medical History: Diabetes, hypertension, dementia Surgical History: Left hemicolectomy Tobacco Use: Never Smoker In the Past 12 Months, Have Used or Abuse Any of the Following Substance: None Medication / Allergies Home Medications: Home Medications Medication Instructions Recorded Confirmed Type metformin 1,000 mg tablet 1,000 mg PO BID #180 tab 10/28/17 07/03/18 Rx donepezil 10 mg tablet 10 mg PO QDAY #90 tab 12/22/17 07/03/18 Rx enalapril maleate 10 mg tablet 10 mg PO QDAY tab 12/22/17 07/03/18 History fluoxetine 40 mg capsule 40 mg PO QDAY cap 12/22/17 07/03/18 History hydrochlorothiazide 25 mg tablet 25 mg PO QDAY tab 12/22/17 07/03/18 History aspirin 81 mg tablet,delayed 81 mg PO QDAY #112 tab 03/08/18 07/03/18 Rx release insulin glargine (U-100) 100 See Rx Instructions .ROUTE 03/12/18 07/03/18 Rx unit/mL (3 mL) subcutaneous pen .COMPLEX #3 ml famotidine 20 mg tablet 20 mg PO BID 05/20/18 07/03/18 History ondansetron HCl 8 mg tablet 8 mg PO Q4H PRN tab 05/20/18 07/03/18 History wheat dextrin 3 gram/3.5 gram oral 1 packet PO QDAY 06/28/18 07/03/18 History powder packet Buprenorphine [Butrans] 1 ea TRANSDERMAL WEEKLY 07/03/18 07/03/18 History Allergies/Adverse Reactions: Allergies Allergy/AdvReac Type Severity Reaction Status Date / Time Sulfa (Sulfonamide Allergy NOT Verified 07/04/18 06:44 Antibiotics) APPLICABLE Review of Systems - Review of Systems All Systems: Reviewed & No Additional Complaints Except as Stated - Cardiovascular Cardiovascular: DENIES: Negative System Review, Chest Pain, Edema, Syncope, Palpitations, Orthopnea, Paroxysmal Nocturnal Dyspnea, Other, See HPI - Gastrointestinal Gastrointestinal / Abdominal: REPORTS: Poor Appetite. DENIES: Abdominal Pain - Genitourinary Genitourinary: REPORTS: Urgency Exam - Vitals Vital Signs: Vital Signs Temperature 97.5 F Temperature Source Temporal Artery Scan Pulse Rate [Pulse Oximeter] 77 Pulse Rate 84 Respiratory Rate 20 Blood Pressure [Right Arm] 114/47 Blood Pressure [Left Arm] 101/45 Blood Pressure 111/62 Pulse Ox 93 Oxygen Flow Rate 2 Oxygen Delivery Method Nasal Cannula Height 5 ft 2 in Weight 109 lb - General General Appearance: No Acute Distress, Cooperative - Eye Eye Exam: POSITIVE: Normal Appearance, PERRL, EOMI, No Scleral Icterus - Respiratory Respiratory Exam: POSITIVE: Clear to Auscultation - Bilaterally, Breathing Non Labored, Normal To Percussion, Normal to Percussion and Palpation - Cardiovascular Cardiovascular Exam: POSITIVE: RRR, No Murmur, No Clicks, No Gallops, No Rubs, PMI Non-Displaced - GI/Abdominal GI/Abdominal Exam: POSITIVE: Normal Bowel Sounds, Non Tender, Non Distended, Soft, No Masses, No Hepatomegaly, No Splenomegaly, No Organomegaly - Extremities Extremities Exam: POSITIVE: No Clubbing Present, No Edema Present, No Cyanosis Present Results - Labs CBC and BMP: 07/04/18 04:17 07/04/18 04:17 Assessment and Plan - Patient Problems (1) Acute bronchiolitis due to human metapneumovirus Current Visit: Yes Status: Acute Comment: Not much cough patient is improving this morning Code(s): J21.1 - Acute bronchiolitis due to human metapneumovirus (2) Colonic diverticular abscess Current Visit: Yes Status: Acute Comment: It was arranged for her to go to [facility] with Dr. Mcelroy interventional radiology by Dr. ivonne Patten for drainage of the abscess then patient will be transported back down in the [place] Code(s): K57.20 - Diverticulitis of large intestine with perforation and abscess without bleeding (3) Anemia Current Visit: No Status: Acute Comment: Hemoglobin is 8 hemodynamically stable discuss with surgery might need EGD and sweet Code(s): D64.9 - Anemia, unspecified (4) Weakness Current Visit: No Status: Acute Comment: Consult PTOT Code(s): R53.1 - Weakness (5) Urinary tract infection Current Visit: No Status: Resolved Comment: Continue antibiotics Code(s): N39.0 - Urinary tract infection, site not specified Qualifiers:
[2018-07-04] MEDS ORDERED: HYDROcodone-APAP 5 MG -325 MG TABLET PO PRN (12:36)
[2018-07-04] MEDS: ASPIRIN EC 81 MG TABLET PO SCH (16:12)
[2018-07-04] MEDS: ENALAPRIL 10 MG TABLET PO SCH (16:13)
[2018-07-04] MEDS: HYDROCHLOROTHIAZIDE 25 MG TABLET PO SCH (16:13)
[2018-07-04] MEDS: FAMOTIDINE 20 MG TABLET PO SCH ×2 (16:20→20:00)
[2018-07-04] MEDS: FLUoxetine 20 MG CAPSULE PO SCH (16:21)
[2018-07-05] MEDS ORDERED: Sodium Chloride 0.9% 1,000 ML PRIMARY IV SCH (01:45)
[2018-07-05 05:43] LABS: BASOPHILS # (AUTO) 0.04 10*3/UL; BASOPHILS % (AUTO) 0.6 % (0-1); EOSINOPHILS # (AUTO) 0.05 10*3/UL; EOSINOPHILS % (AUTO) 0.7 % (0-8); Hemoglobin [HGB] 9.1 g/dL (12.0-16.0); LYMPHOCYTES # (AUTO) 1.08 10*3/uL; MEAN CORPUSCULAR HEMOGLOBIN 27.7 PG (27-31); MEAN CORPUSCULAR HGB CONC 31.4 g/dL (33-37); MEAN CORPUSCULAR VOLUME 88.1 FL (81-99); MEAN PLATELET VOLUME 7.9 FL (7.4-12.2); MONOCYTES # (AUTO) 0.54 10*3/UL (0.3-0.8); MONOCYTES % (AUTO) 7.5 % (5-15); NEUTROPHILS # (AUTO) 5.47 10*3/UL; NEUTROPHILS % (AUTO) 75.8 % (50-80); RED BLOOD COUNT 3.29 10^6/uL (4.20-5.40)
[2018-07-05 06:04] LABS: PLATELET MORPHOLOGY COMMENT NORMAL MORPHOLOGY (NORM); RBC MORPHOLOGY COMMENT NORMAL MORPHOLOGY (NORM); WBC MORPHOLOGY COMMENT NORMAL MORPHOLOGY (NORM)
[2018-07-05 06:06] LABS: BLOOD UREA NITROGEN 15 mg/dL (7-22); BUN/CREATININE RATIO 21.42 (6-20)
[2018-07-05 08:45] VITALS: BP 116/47; RESP 16; TEMP 97.4; O2SAT 96
[2018-07-05] MEDS: Ertapenem Inj 1 GM in Sodium Chloride 0.9% 100 ML IV SCH (08:58)
[2018-07-05] MEDS: ASPIRIN EC 81 MG TABLET PO SCH (08:59)
[2018-07-05] MEDS: FAMOTIDINE 20 MG TABLET PO SCH (08:59)
[2018-07-05] MEDS: FLUoxetine 20 MG CAPSULE PO SCH (08:59)
[2018-07-05] MEDS: HYDROCHLOROTHIAZIDE 25 MG TABLET PO SCH (08:59)
[2018-07-05] MEDS: ENALAPRIL 10 MG TABLET PO SCH (08:59)
[2018-07-05] MEDS ORDERED: DONEPEZIL 5 MG TABLET PO SCH (09:00)
[2018-07-05] MEDS ORDERED: Insulin Glargine SoloStar Inj 100 UNIT/ML INSULN.PEN SUBCUT SCH (09:00)
--- NOTE | 2018-07-05 09:27 | DCSUMMARY ---
Hospitalization Summary Hospital Course: Final Discharge Diagnosis: Current Visit Problems Problem Status Onset Code Acute bronchiolitis due to human metapneumovirus Acute J21.1 Aspiration into airway Acute T17.908A Dehydration Acute E86.0 Sigmoid diverticulitis Acute K57.32 Colonic diverticular abscess Acute K57.20 Urinary tract infection Acute N39.0 Colonic abscess Diagnostic Data, Laboratory Data, and Procedures of Signifigance: Laboratory Results 07/05/18 07/05/18 05:35 05:35 WBC 7.21 RBC 3.29 L Hgb 9.1 L Hct 29.0 L MCV 88.1 MCH 27.7 MCHC 31.4 L RDW Std Deviation 47.9 RDW Coeff of Jabier 15.3 H Plt Count 554 H MPV 7.9 Immature Gran % (Auto) 0.4 Neut % (Auto) 75.8 Lymph % (Auto) 15.0 [place] % (Auto) 7.5 Eos % (Auto) 0.7 Baso % (Auto) 0.6 Immature Gran # (Auto) 0.03 Neut # (Auto) 5.47 Lymph # (Auto) 1.08 [place] # (Auto) 0.54 Eos # (Auto) 0.05 Baso # (Auto) 0.04 WBC Morphology Comment Normal morphology Plt Morphology Comment Normal morphology RBC Morph Comment Normal morphology Sodium 136 Potassium 4.3 Chloride 103 Carbon Dioxide 29 Anion Gap 4 L BUN 15 Creatinine 0.7 BUN/Creatinine Ratio 21.42 H Glucose 146 H Calculated Osmolality 285.0 Calcium 9.2 Total Bilirubin 0.1 L AST 17 ALT 10 Alkaline Phosphatase 85 Total Protein 6.0 L Albumin 3.0 L Globulin 3.0 Albumin/Globulin Ratio 1.00 L History and Physical pertinent to Admission: Course of Hospitalization: This very nice 82-year-old female with chronic comes into the ER for cough and shortness of breath this is resolved CT scan of the chest was negative for pneumonia or PE on further testing patient was found to have a colonic abscess 5 x 3 cm patient was sent to [facility] [place] to have this drained by interventional radiology arranged by Dr. ivonne Lee. Patient did well she came back to [facility] her labs look improved no white count her anemia is improved from 8 to 9. Patient has no complaints this morning no chest pain nausea or vomiting feels back to her normal self. Discussed the case with Dr. ivonne Lee patient and can go back to [facility] where they were managed her drain continue IV antibiotics 1 g daily of Invanz for a total of [address] ivonne Lee will follow-up as an outpatient for possible EGD. This was discussed with nursing and the patient On the date of discharge, the patient was examined: Gen.: No acute distress, alert, nontoxic Heart: Regular rate and rhythm, no murmurs, clicks, gallops, or rubs Lungs: Clear to auscultation bilaterally, breathing is nonlabored Abdomen/GI: Normal tones on auscultation, soft, nontender, nondistended Musculoskeletal/extremities: No clubbing, cyanosis, or edema Vitals reviewed and are listed below Vital Signs (24 hrs) 07/04/18 13:00 07/04/18 16:27 07/04/18 20:15 Temperature 97.3 F 97.4 F 97.7 F Pulse Rate [Pulse Oximeter] 84 76 83 Respiratory Rate 20 20 20 Blood Pressure [Left Arm] 128/50 Blood Pressure [Right Arm] 111/46 106/45 Pulse Ox 89 94 94 07/05/18 00:29 07/05/18 05:00 07/05/18 05:31 Temperature 97.7 F 97.0 F Pulse Rate [Pulse Oximeter] 73 65 Respiratory Rate 20 20 Blood Pressure [Left Arm] 127/52 Blood Pressure [Right Arm] 115/54 Pulse Ox 94 95 95 07/05/18 06:12 07/05/18 07:00 07/05/18 08:40 Temperature 97.4 F Pulse Rate [Pulse Oximeter] 70 Respiratory Rate 16 16 Blood Pressure [Left Arm] Blood Pressure [Right Arm] 116/47 Pulse Ox 94 96 Assessment and Plan: 1. As per discharge assessments above 2. Disposition: [facility] 3. Condition on discharge, stable and improved. 4. Diet: regular diet 5. Activities: resume normal activities 6. Follow-Up: 1. PCP 2. 7. Medications at the Time of Discharge: Home Medications Medication Instructions Recorded Confirmed Type metformin 1,000 mg tablet 1,000 mg PO BID #180 tab 10/28/17 07/03/18 Rx donepezil 10 mg tablet 10 mg PO QDAY #90 tab 12/22/17 07/03/18 Rx enalapril maleate 10 mg tablet 10 mg PO QDAY tab 12/22/17 07/03/18 History fluoxetine 40 mg capsule 40 mg PO QDAY cap 12/22/17 07/03/18 History hydrochlorothiazide 25 mg tablet 25 mg PO QDAY tab 12/22/17 07/03/18 History aspirin 81 mg tablet,delayed 81 mg PO QDAY #112 tab 03/08/18 07/03/18 Rx release insulin glargine (U-100) 100 See Rx Instructions .ROUTE 03/12/18 07/03/18 Rx unit/mL (3 mL) subcutaneous pen .COMPLEX #3 ml famotidine 20 mg tablet 20 mg PO BID 05/20/18 07/03/18 History ondansetron HCl 8 mg tablet 8 mg PO Q4H PRN tab 05/20/18 07/03/18 History wheat dextrin 3 gram/3.5 gram oral 1 packet PO QDAY 06/28/18 07/03/18 History powder packet Buprenorphine [Butrans] 1 ea TRANSDERMAL WEEKLY 07/03/18 07/03/18 History Ertapenem Inj [INVanz Inj] 1 gm IV Q24H vial 07/05/18 Rx 8. Time, care, counseling and coordination of care for this discharge is greater than 30 minutes. Exam - Vitals Vital Signs: Vital Signs Temperature 97.4 F Temperature Source Temporal Artery Scan Pulse Rate [Pulse Oximeter] 70 Pulse Rate 84 Respiratory Rate 16 Blood Pressure [Right Arm] 116/47 Blood Pressure [Left Arm] 127/52 Blood Pressure 111/62 Pulse Ox 96 Oxygen Flow Rate 2 Oxygen Delivery Method Nasal Cannula Height 5 ft 2 in Weight 109 lb Patient Problems - Patient Problem List (1) Acute bronchiolitis due to human metapneumovirus Current Visit: Yes Status: Acute Code(s): J21.1 - Acute bronchiolitis due to human metapneumovirus Category: Medical (2) Colonic diverticular abscess Current Visit: Yes Status: Acute Code(s): K57.20 - Diverticulitis of large intestine with perforation and abscess without bleeding Category: Medical (3) Anemia Current Visit: No Status: Acute Code(s): D64.9 - Anemia, unspecified Category: Medical (4) Weakness Current Visit: No Status: Acute Code(s): R53.1 - Weakness Category: Medical (5) Urinary tract infection Current Visit: No Status: Resolved Comment: Frequency and urgency post treatment with pyridium is completely resolved. Code(s): N39.0 - Urinary tract infection, site not specified Qualifiers: Category: Medical
== END 2018-07-05 11:30 ==
LOC: MED/SURG 17:26 → ER 17:26 → MED/SURG 21:54
PROVIDERS: ADMIT Internal Medicine; ATTEND Internal Medicine